=== PATIENT | female | born 1935 | race Caucasian/White ===

== ENCOUNTER 2019-12-15 20:30 | Inpatient (IN) | payer MEDICARE, OTHER ==
[~2019-12-15] VITALS: Ht 154.9 cm; Wt 77.1 kg
[~2019-12-15 20:30] MED LIST: DIGO125T3; HYDR-3857 PO; LOSA25TA41; METO-352 PO; TRAM-42 PO; WARF-48 PO; WARF5TAB2; WRF2.5T PO
--- NOTE | 2019-12-15 20:45 | NUR ---
Late entry: Pt arrives by POV with increasing sob today; pt was diagnosed with Covid a wk and half ago. Pt has been doing well but was seen by her PCP a couple of days ago for worsening of s/s and put on steroids and abx. Pt today had even worsening of s/s and came to ED for care. Pt is A&Ox4, is tachypneic, with low grade fever. Pt denies pain. IV and labs drawn. ECG obtained. Dr. Warner at bedside for exam.
[2019-12-15] MEDS ORDERED: CEFEPIME INJECTION 2,000 MG in WATER (STERILE) FOR INJECTION 20 ML IV ONE (21:00)
[2019-12-15 21:08] LABS: BASOPHILS % (AUTO) 0 % (0-10); EOSINOPHILS % (AUTO) 0 % (0-10); HEMATOCRIT 43 % (35-52); HEMOGLOBIN 14.5 g/dL (11.5-16.0); LYMPHOCYTES # (AUTO) 1.7 10^3/uL (1.0-4.0); LYMPHOCYTES % (AUTO) 15 % (12-44); MEAN CORPUSCULAR HEMOGLOBIN 34 pg (25-34); MEAN CORPUSCULAR HGB CONC 34 g/dL (32-36); MEAN CORPUSCULAR VOLUME 99 fL (80-99); MEAN PLATELET VOLUME 10.2 fL (9.0-12.2); MONOCYTES # (AUTO) 1.7 10^3/uL (0.0-1.0); MONOCYTES % (AUTO) 15 % (0-12); NEUTROPHILS # (AUTO) 8.1 10^3/uL (1.8-7.8); NEUTROPHILS % (AUTO) 70 % (42-75); PLATELET COUNT 246 10^3/uL (130-400); WHITE BLOOD COUNT 11.7 10^3/uL (4.3-11.0)
[2019-12-15] MEDS ORDERED: LACTATED RINGERS 1,000 ML IV ONE (21:10)
[2019-12-15 21:20] LABS: ALBUMIN 3.7 GM/DL (3.2-4.5); CHLORIDE 96 MMOL/L (98-107); INR 1.2 (0.8-1.4); POTASSIUM 3.6 MMOL/L (3.6-5.0); PROTHROMBIN TIME PATIENT 15.4 SEC (12.2-14.7); SODIUM 129 MMOL/L (135-145)
[2019-12-15 21:21] LABS: CALCIUM 8.5 MG/DL (8.5-10.1)
[2019-12-15 21:22] LABS: GLUCOSE 129 MG/DL (70-105)
[2019-12-15 21:23] LABS: TOTAL PROTEIN 7.2 GM/DL (6.4-8.2)
[2019-12-15 21:24] LABS: BILIRUBIN,TOTAL 1.1 MG/DL (0.1-1.0); CARBON DIOXIDE 20 MMOL/L (21-32)
[2019-12-15 21:26] LABS: ALKALINE PHOSPHATASE 64 U/L (40-136); CREATININE SERUM 0.89 MG/DL (0.60-1.30); GFR ESTIMATED > 60
--- NOTE | 2019-12-15 21:26 | ED Respiratory ---
General Chief Complaint: Respiratory Problems Stated Complaint: COVID + Nursing Triage Note: Patient is covid positive x 1.5 wks ago; states starting today she became increasingly shob. Source: patient, family History of Present Illness Date Seen by Provider: Dec 15, 2019 Time Seen by Provider: 21:35 Initial Comments PT ARRIVES VIA POV FROM HOME PT WITH 11 DAYS OF COVID-19 SYMPTOMS, TESTED + FOR COVID-19 9 DAYS AGO PT C/O MILD NON-PRODUCTIVE COUGH PT WITH PERSISTENT LOW GRADE TEMP--UP TO 100 TODAY TODAY IS VERY SHORT OF BREATH AND PROFOUNDLY WEAK, AND IS UNABLE TO STAND TODAY NO CHEST PAIN NO SWELLING IN LEGS/ FEET OR PAIN IN CALVES HAS BEEN DRINKING FLUIDS AND VOIDING NORMALLY NO LOSS OF TASTE OR SMELL NO GI SYMPTOMS HAS HAD BODY ACHES AND HEADACHE, AND ONGOING GENERALIZED WEAKNESS AND FATIGUE. PT HAS BEEN TO PCP, AND COMPLETED 5 DAYS OF ZITHROMAX, A SHORT ROUND OF DEXAMETHASONE, AND HAS COMPLETED 3 DAYS OF CEFDINIR. OUTPATIENT CXR WAS REPORTEDLY NORMAL ON WEDNESDAY PT HAD DONE RELATIVELY WELL UNTIL TODAY PT HAS CHRONIC ATRIAL FIBRILLATION ON , HAS CARDIOMYOPATHY THIS SUMMER HAD INTRACRANIAL BLEED--NO SURGERY, FOLLOWED BY ISCHEMIC STROKE, SMALL CEREBRAL ANEURYSM FOUND, BUT NO SURGERY DONE. MULTIPLE FAMILY MEMBERS ALL ILL WITH COVID-19, INCLUDING HER , WHO HAS BEEN ADMITTED HERE ALL WEEK AND WAS JUST DISMISSED THIS EVENING. PCP: DR. MAXWELL, [facility] Allergies and Home Medications Allergies Coded Allergies: lisinopril (Verified Adverse Reaction, Unknown, COUGH, 03/01/15) Home Medications Hydrocodone/Acetaminophen 1 Each Tablet, 1 EACH PO Q4H Prescribed by: STANLEY SCHMITZ on 03/01/152049 Metoprolol Succinate 50 Mg Tab.er.24h, 100 MG PO B, (Reported) Tramadol HCl 50 Mg Tablet, 50 MG PO Q4H Prescribed by: STANLEY SCHMITZ on 03/01/152049 Patient Home Medication List Home Medication List Reviewed: Yes Review of Systems Review of Systems Constitutional: see HPI, fever, malaise, weakness EENTM: no symptoms reported Respiratory: see HPI, cough, short of breath Cardiovascular: No chest pain, No edema, No syncope Gastrointestinal: No abdominal pain, No diarrhea; loss of appetite; No nausea, No vomiting Genitourinary: no symptoms reported; No decreased output Musculoskeletal: see HPI (BODY ACHES) Skin: no symptoms reported Psychiatric/Neurological: Headache; Denies Numbness, Denies Paresthesia, Denies Seizure, Denies Tingling; Weakness (GENERALIZED WEAKNESS AND FATIGUE) Hematologic/Lymphatic: See HPI Immunological/Allergic: no symptoms reported Past Ljdarbz-Iejlbr-Hfvoir Hx Past Med/Social Hx: Reviewed and Corrections made Patient Social History Alcohol Use: Denies Use Smoking Status: Never a Smoker Recent Foreign Travel: No Contact w/Someone Who Travel: No Recent Infectious Disease Expo: Yes Immunizations Up To Date Tetanus Booster (TDap): Unknown Past Medical History Surgeries: Yes ( X 1) Section Respiratory: No Cardiac: Yes (CHRONIC ATRIAL FIBRILLATION, ON ELIQUIS) Atrial Fibrillation, Cardiomyopathy, High Cholesterol, Hypertension Neurological: Yes (HEMORRHAGIC AND ISCHEMIC CVA'S SUMMER 2019; CEREBRAL ANEURYSM-NO SURG) 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 oz. 77.809860hp; 30.00 BMI Method: General Appearance: WD/WN, mild distress, other (MODERATELY DYSPNEIC, LETHARGIC, UNABLE TO STAND OR TRANSFER FROM VEHICLE TO WHEELCHAIR OR WHEELCHAIR TO BED--NEEDS FULL ASSIST. ) HEENT: PERRL/EOMI, other (MILDLY DRY) Neck: normal inspection Respiratory: respiratory distress (MILD), decreased breath sounds (IN RIGH T> LEFT BASE), accessory muscle use; No crackles, No rales, No rhonchi, No wheezing; other (MODERATELY DYSPNEIC) Cardiovascular: no JVD, no murmur, tachycardia, irregularly irregular Gastrointestinal: non tender, soft Extremities: normal inspection, pedal edema (TRACE BILATERALLY) Neurologic/Psychiatric: package crimper II-XII nml as tested, no motor/sensory deficits, alert, oriented x 3, other (LETHARGIC, GENERALIZED WEAKNESS) Skin: normal color, warm/dry; No rash Focused Exam Lactate Level 12/15/19 20:50: Lactic Acid Level 1.78 Lactic Acid Level Laboratory Tests Test 12/15/19 20:50 Lactic Acid Level 1.78 MMOL/L (0.50-2.00) Progress/Results/Core Measures Suspected Sepsis Recent Fever Within 48 Hours: Yes Infection Criteria Present: Documented Infection New/Unexplained Altered Menta: No Sepsis Screen: Possible Severe Sepsis Risk SIRS Temperature: Pulse: 118 Respiratory Rate: 32 Laboratory Tests 12/15/19 20:50: White Blood Count 11.7H Blood Pressure 154 /111 Mean: 125 12/15/19 20:50: Lactic Acid Level 1.78 Laboratory Tests 12/15/19 20:50: Creatinine 0.89, INR Comment 1.2, Platelet Count 246, Total Bilirubin 1.1H Results/Orders Lab Results Laboratory Tests Test 12/15/19 20:50 12/15/19 21:23 Range/Units White Blood Count 11.7 H 4.3-11.0 10^3/uL Red Blood Count 4.29 3.80-5.11 10^6/uL Hemoglobin 14.5 11.5-16.0 g/dL Hematocrit 43 35-52 % Mean Corpuscular Volume 99 80-99 fL Mean Corpuscular Hemoglobin 34 25-34 pg Mean Corpuscular Hemoglobin Concent 34 32-36 g/dL Red Cell Distribution Width 12.4 10.0-14.5 % Platelet Count 246 130-400 10^3/uL Mean Platelet Volume 10.2 9.0-12.2 fL Immature Granulocyte % (Auto) 1 % Neutrophils (%) (Auto) 70 42-75 % Lymphocytes (%) (Auto) 15 12-44 % Monocytes (%) (Auto) 15 H 0-12 % Eosinophils (%) (Auto) 0 0-10 % Basophils (%) (Auto) 0 0-10 % Neutrophils # (Auto) 8.1 H 1.8-7.8 10^3/uL Lymphocytes # (Auto) 1.7 1.0-4.0 10^3/uL Monocytes # (Auto) 1.7 H 0.0-1.0 10^3/uL Eosinophils # (Auto) 0.0 0.0-0.3 10^3/uL Basophils # (Auto) 0.0 0.0-0.1 10^3/uL Immature Granulocyte # (Auto) 0.1 0.0-0.1 10^3/uL Prothrombin Time 15.4 H 12.2-14.7 SEC INR Comment 1.2 0.8-1.4 Activated Partial Thromboplast Time 34 24-35 SEC Sodium Level 129 L 135-145 MMOL/L Potassium Level 3.6 3.6-5.0 MMOL/L Chloride Level 96 L 98-107 MMOL/L Carbon Dioxide Level 20 L 21-32 MMOL/L Anion Gap 13 5-14 MMOL/L Blood Urea Nitrogen 21 H 7-18 MG/DL Creatinine 0.89 0.60-1.30 MG/DL Estimat Glomerular Filtration Rate > 60 BUN/Creatinine Ratio 24 Glucose Level 129 H 70-105 MG/DL Lactic Acid Level 1.78 0.50-2.00 MMOL/L Calcium Level 8.5 8.5-10.1 MG/DL Corrected Calcium 8.7 8.5-10.1 MG/DL Magnesium Level 1.6 1.6-2.4 MG/DL Total Bilirubin 1.1 H 0.1-1.0 MG/DL Aspartate Amino Transf (AST/SGOT) 24 5-34 U/L Alanine Aminotransferase (ALT/SGPT) 24 0-55 U/L Alkaline Phosphatase 64 40-136 U/L Total Creatine Kinase 23 L 29-168 U/L Creatine Kinase MB 0.6 <6.6 NG/ML Myoglobin 30.1 10.0-92.0 NG/ML Troponin I < 0.028 <0.028 NG/ML B-Type Natriuretic Peptide 288.2 H <100.0 PG/ML Total Protein 7.2 6.4-8.2 GM/DL Albumin 3.7 3.2-4.5 GM/DL Procalcitonin 0.06 <0.10 NG/ML Urine Color YELLOW Urine Clarity SL CLOUDY Urine pH 5.0 5-9 Urine Specific Frontier >=1.030 1.016-1.022 Urine Protein 2+ H NEGATIVE Urine Glucose (UA) NEGATIVE NEGATIVE Urine Ketones NEGATIVE NEGATIVE Urine Nitrite NEGATIVE NEGATIVE Urine Bilirubin NEGATIVE NEGATIVE Urine Urobilinogen 0.2 < = 1.0 MG/DL Urine Leukocyte Esterase NEGATIVE NEGATIVE Urine RBC (Auto) TRACE-L NEGATIVE Urine RBC RARE /HPF Urine WBC RARE /HPF Urine Squamous Epithelial Cells NONE /HPF Urine Crystals PRESENT H /LPF Urine Amorphous Sediment FEW YOON URATES H /LPF Urine Bacteria TRACE /HPF Urine Casts NONE /LPF Urine Mucus NEGATIVE /LPF Urine Culture Indicated NO My Orders Orders - STANLEY SCHMITZ DO Cefepime Injection (Maxipime Injection) (12/15/19 21:00) Dexamethasone Injection (Decadron Inje (12/15/19 21:00) Ed Iv/Invasive Line Start (12/15/19 20:55) Ekg Tracing (12/15/19 20:55) Catheter(Urinary) Insert & Ass 03,15 (12/15/19 20:55) O2 (12/15/19 20:55) Monitor-Rhythm Ecg Trace Only (12/15/19 20:55) BNP (12/15/19 20:55) Cbc With Automated Diff (12/15/19 20:55) Comprehensive Metabolic Panel (12/15/19 20:55) Creatine Kinase (12/15/19 20:55) Creatine Kinase Mb (12/15/19 20:55) Lactic Acid Analyzer (12/15/19 20:55) Magnesium (12/15/19 20:55) Procalcitonin (Pct) (12/15/19 20:55) Protime With Inr (12/15/19 20:55) Partial Thromboplastin Time (12/15/19 20:55) Troponin I (12/15/19 20:55) Ua Culture If Indicated (12/15/19 20:55) Blood Culture (12/15/19 20:55) Myoglobin Serum (12/15/19 20:55) Chest 1 View, Ap/Pa Only (12/15/19 20:55) Lactated Ringers (Lr 1000 Ml Iv Solution (12/15/19 21:10) Ed Iv/Invasive Line Start (12/15/19 21:30) Ns Iv 1000 Ml (Sodium Chloride 0.9%) (12/15/19 21:30) Albuterol/Ipratropium Inhaler (Combivent (12/16/19 09:00) Fluticasone/Salmeterol 115/21 (Advair Hf (12/16/19 08:00) Rt Request For Service (12/15/19 22:03) Medications Given in ED Current Medications Medications Dose Ordered Sig/Figueroa Route Start Time Stop Time Status Last Admin Dose Admin Cefepime HCl 2000 mg/Sterile Water 20 ml @ 240 mls/hr ONCE ONCE IV 12/15/19 21:00 12/15/19 21:04 DC 12/15/19 21:07 240 MLS/HR Vital Signs/I&O 12/15/19 12/15/19 12/15/19 20:30 21:20 21:37 Temp 37.6 Pulse 118 120 Resp 32 32 B/P (MAP) 154/111 (125) 158/111 Pulse Ox 93 96 98 O2 Delivery Room Air Nasal Cannula Nasal Cannula O2 Flow Rate 2.00 12/16/19 00:00 Intake Total 1000 ml Balance 1000 ml Capillary Refill : Less Than 3 Seconds Blood Pressure Mean: 125 Progress Note : Progress Note O2 SATS 93-94% ON ROOM AIR--UP TO 97% ON 2L/NC STILL WITH MODERATE DYSPNEA GIVEN INHALER TREATMENTS WITH COMBIVENT AND ADVAIR WITH MILD IMPROVEMENT IN LABORED BREATHING. NO DETERIORATION IN PT'S CONDITION DURING ER STAY ECG Initial ECG Impression Date: Dec 15, 2019 Initial ECG Impression Time: 20:41 Initial ECG Rate: 107 Initial ECG Impression: Atrial Fibrillation Diagnostic Imaging Comments CXR--PER RADIOLOGIST REPORT AT 2137 FINDINGS: Cardiac enlargement and central vascular congestion. There is some asymmetric infiltrate in the right base which could represent pneumonia. There is no pneumothorax or large effusion. Osseous structures are normal. IMPRESSION: 1. Cardiac enlargement with central vascular congestion. 2. Infiltrate at the right lung base suspicious for pneumonia. Reviewed: Reviewed by Me Departure Communication (Admissions) 2099--SPOKE WITH DR. SALMERON, WILL CALL HER BACK WITH TEST RESULTS. 2204--SPOKE WITH DR. SALMERON, ACCEPTS PT FOR ADMIT. ORDERS NOTED. Impression Primary Impression: Pneumonia due to COVID-19 virus Additional Impressions: Dehydration Hyponatremia Chronic atrial fibrillation Generalized weakness Disposition: ADMITTED INPATIENT Condition: Stable Admissions Decision to Admit Reason: Admit from ER (General) Decision to Admit/Date: Dec 15, 2019 Time/Decision to Admit Time: 22:10 Departure-Patient Inst. Referrals: NO,LOCAL PHYSICIAN (PCP/Family) Primary Care Physician STANLEY SCHMITZ DO Dec 15, 2019 21:25
[2019-12-15 21:27] LABS: BUN/CREATININE RATIO 24
[2019-12-15 21:29] LABS: ALANINE AMINOTRANSFERASE 24 U/L (0-55)
[2019-12-15 21:30] LABS: MAGNESIUM 1.6 MG/DL (1.6-2.4)
[2019-12-15] MEDS ORDERED: NS IV 1000 ML 1,000 ML IV SCH (21:30)
[2019-12-15 21:31] LABS: CREATINE KINASE 23 U/L (29-168)
[2019-12-15 21:33] LABS: BILIRUBIN,URINE NEGATIVE (NEGATIVE); COLOR,URINE YELLOW; GLUCOSE, URINE (UA) NEGATIVE (NEGATIVE); KETONES,URINE NEGATIVE (NEGATIVE); LEUKOCYTE ESTERASE ,URINE NEGATIVE (NEGATIVE); NITRITE,URINE NEGATIVE (NEGATIVE); PROTEIN,URINE 2+ (NEGATIVE)
--- NOTE | 2019-12-15 21:37 | Diagnostic Imaging Report ---
INDICATION: Pneumonia, Covid positive. COMPARISON: None. EXAMINATION: Single view of the chest. FINDINGS: Cardiac enlargement and central vascular congestion. There is some asymmetric infiltrate in the right base which could represent pneumonia. There is no pneumothorax or large effusion. Osseous structures are normal. IMPRESSION: 1. Cardiac enlargement with central vascular congestion. 2. Infiltrate at the right lung base suspicious for pneumonia. Dictated by: Dictated on workstation # [id number]
[2019-12-15 21:38] LABS: CLARITY,URINE SL CLOUDY
[2019-12-15 21:38] LABS: CREATINE KINASE MB 0.6 NG/ML (<6.6)
[2019-12-15 21:44] LABS: AMORPHOUS SEDIMENT,UR FEW AMOR URATES /LPF; BACTERIA,URINE TRACE /HPF; RBC,URINE RARE /HPF; WBC,URINE RARE /HPF
[2019-12-15] MEDS ORDERED: ADVAIR HFA 115/21 MCG INHALER 8 GM IH ONE (22:09)
[2019-12-15] MEDS ORDERED: ALBUTEROL/IPRATROP (COMBIVENT RESPIMAT) 4 GM INHALER ONE (22:10)
--- NOTE | 2019-12-15 22:14 | NUR ---
Pt remains alert and answering questions appropriately. Pt remais tachypneic.
[2019-12-15 23:10] VITALS: BP 159/99
--- NOTE | 2019-12-15 23:10 | NUR ---
NINOSKA MCINTYRE admitted to room 423-1, with an admitting diagnosis of Covid 19, Pneumonia, Dehydration, Profound weakness, on 12/15/19 from ER via stretcher, accompanied by RN's x 2.NINOSKA MCINTYRE introduced to surroundings, call light, bed controls, phone, TV, temperature control, lights, meal times, smoking policy, visitor policy, side rail policy, bathrooms and showers. Patient Rights given to patient in the handbook. NINOSKA MCINTYRE verbalizes understanding that [facility] is not responsible for the loss or damage to any personal effects or valuables that are kept in the patients possession during their hospitalization.
[2019-12-15] MEDS ORDERED: ONDANSETRON 4 MG/2 ML (SDV) Z0FRAN IVP PRN (23:45)
[2019-12-16] VITALS (11 sets, daily range): BP systolic 123–154; BP diastolic 67–111
[2019-12-16] MEDS: NS IV 1000 ML 1,000 ML IV SCH ×2 (00:29→08:29)
--- NOTE | 2019-12-16 01:12 | NUR ---
ALBUTEROL INHALER 4 PUFFS Q6 AND Q2 PRN. INITIATE 02 2-4 L TO KEEP SATS GREATER THAN 94%. IS AND AEROBIKKA TID. RT TO REASSESS OR REEVALUATE IN 72 HOURS OR NEEDE Addendum: 12/16/19 at 0112 by SARITHA CARBAJAL RT Amended: Links added.
[2019-12-16] MEDS ORDERED: RT-ALBUTEROL INHALER HFA (VENTOLIN HFA) 18 GM IH PRN (01:15)
[2019-12-16] MEDS ORDERED: APIX5TAB PO (01:56)
[2019-12-16] MEDS ORDERED: ROSU5TAB13 PO (01:56)
[2019-12-16] MEDS ORDERED: LOSA50TA63 PO (01:56)
[2019-12-16] MEDS ORDERED: METO100T6 PO (01:56)
[2019-12-16] MEDS ORDERED: CEFD300C3 PO (02:08)
[2019-12-16 06:05] LABS: BASOPHILS % (AUTO) 0 % (0-10); EOSINOPHILS % (AUTO) 0 % (0-10); HEMATOCRIT 42 % (35-52); HEMOGLOBIN 14.5 g/dL (11.5-16.0); LYMPHOCYTES # (AUTO) 1.1 10^3/uL (1.0-4.0); LYMPHOCYTES % (AUTO) 16 % (12-44); MEAN CORPUSCULAR HEMOGLOBIN 34 pg (25-34); MEAN CORPUSCULAR HGB CONC 34 g/dL (32-36); MEAN CORPUSCULAR VOLUME 99 fL (80-99); MEAN PLATELET VOLUME 10.3 fL (9.0-12.2); MONOCYTES # (AUTO) 0.5 10^3/uL (0.0-1.0); MONOCYTES % (AUTO) 8 % (0-12); NEUTROPHILS # (AUTO) 5.2 10^3/uL (1.8-7.8); NEUTROPHILS % (AUTO) 76 % (42-75); PLATELET COUNT 229 10^3/uL (130-400); WHITE BLOOD COUNT 6.8 10^3/uL (4.3-11.0)
[2019-12-16] MEDS: CEFEPIME 1,000 MG/SWFI 10 ML IV PUSH IV SCH ×6 (06:07→21:40)
[2019-12-16 06:14] LABS: ALBUMIN 3.4 GM/DL (3.2-4.5); CHLORIDE 101 MMOL/L (98-107); POTASSIUM 3.9 MMOL/L (3.6-5.0); SODIUM 136 MMOL/L (135-145)
[2019-12-16 06:16] LABS: CALCIUM 8.9 MG/DL (8.5-10.1)
[2019-12-16 06:17] LABS: GLUCOSE 148 MG/DL (70-105); TOTAL PROTEIN 6.6 GM/DL (6.4-8.2)
[2019-12-16 06:18] LABS: CARBON DIOXIDE 22 MMOL/L (21-32)
[2019-12-16 06:19] LABS: BILIRUBIN,TOTAL 1.5 MG/DL (0.1-1.0)
[2019-12-16 06:20] LABS: ALKALINE PHOSPHATASE 59 U/L (40-136); CREATININE SERUM 0.78 MG/DL (0.60-1.30); GFR ESTIMATED > 60
[2019-12-16 06:21] LABS: BUN/CREATININE RATIO 22
[2019-12-16 06:23] LABS: ALANINE AMINOTRANSFERASE 29 U/L (0-55)
[2019-12-16] MEDS ORDERED: ADVAIR HFA 115/21 MCG INHALER 8 GM IH ONE (08:00)
[2019-12-16] MEDS ORDERED: ALBUTEROL/IPRATROP (COMBIVENT RESPIMAT) 4 GM INHALER IH ONE (09:00)
[2019-12-16] MEDS: RT-ALBUTEROL INHALER HFA (VENTOLIN HFA) 18 GM IH SCH ×4 (10:25→19:34)
[2019-12-16] MEDS: ACETAMINOPHEN 500 MG TAB (TYLENOL) PO PRN (11:47)
--- NOTE | 2019-12-16 11:51 | History & Physical-Hospitalist ---
History of Present Illness HPI/Chief Complaint Pt is a n 84yoCF with a PMH of a-fib, ICH, HTN, HLD who presented to the ER due to worsening COVID symptoms. She developed COVID symptoms 12 days ago and was tested positive 10 days ago after attending a wedding where there have now been multiple COVID cases. She was doing ok at home but became more short of breath yesterday. She reports a temperature around 100. She told the ER due was more weak and that it was hard to walk but to me states the difficulty walking was from her need for a hip replacement. She was treated with Azithromycin, decadron, and cefdinir as an outpatient and did well with that until yesterday. Source: patient Date Seen 12/16/19 Time Seen by a Provider: 11:45 Attending Physician Mariola Vallecillo MD PCP No,Local Physician Referring Physician Date of Admission Dec 15, 2019 at 22:10 Home Medications & Allergies Home Medications Reviewed patient Home Medication Reconciliation performed by pharmacy medication reconciliations chemical waste management technician and/or nursing. Patients Allergies have been reviewed. Allergies Allergies Coded Allergies lisinopril (Verified Adverse Reaction, Unknown, COUGH, 03/01/15) Past Svujrhd-Xpzunp-Phfvqc Hx Past Med/Social Hx: Reviewed and Corrections made Patient Social History Marrital Status: Employed/Student: retired Alcohol Use: Denies Use Recreational Drug Use: No Smoking Status: Never a Smoker Recent Foreign Travel: No Contact w/other who traveled: No Recent Infectious Disease Expo: Yes Immunizations Up To Date Tetanus Booster (TDap): Unknown Past Medical History Surgeries: Section Cardiac: Atrial Fibrillation, Cardiomyopathy, High Cholesterol, Hypertension Neurological: Stroke Menopausal Genitourinary: Bladder Infection History of Blood Disorders: No Family History Reviewed Nursing Family Hx FH: heart disease 19 FATHER Review of Systems Constitutional: fever (low grade), malaise, weakness EENTM: no symptoms reported Respiratory: see HPI, dyspnea on exertion, short of breath Cardiovascular: No chest pain, No palpitations Gastrointestinal: No abdominal pain, No nausea, No vomiting Genitourinary: No dysuria, No frequency Musculoskeletal: muscle cramps, muscle weakness Psychiatric/Neurological: Denies Headache, Denies Numbness; Weakness Physical Exam Physical Exam Vital Signs Vital Signs - First Documented 10/9/20 10/9/20 10/10/20 20:30 21:20 00:53 Temp 37.6 Pulse 118 Resp 32 B/P (MAP) 154/111 (125) Pulse Ox 93 O2 Delivery Room Air O2 Flow Rate 2.00 FiO2 21 Capillary Refill : Less Than 3 Seconds Height, Weight, BMI Height: 5'1" Weight: 170lbs. oz. 77.238384jo; 36.30 BMI Method: General Appearance: No Apparent Distress, WD/WN HEENT: PERRL/EOMI, Moist Mucous Membranes Neck: Normal Inspection, Supple Respiratory: Decreased Breath Sounds; No Rhonci, No Wheezing; Other (on 3lpm NC) Cardiovascular: No JVD, No Murmur, Irregularly Irregular Gastrointestinal: Normal Bowel Sounds, Non Tender, Soft Extremity: Normal Capillary Refill, No Calf Tenderness, No Pedal Edema Neurologic/Psychiatric: Alert, Oriented x3, Normal Mood/Affect Skin: Normal Color, Warm/Dry Results Results/Procedures Labs Laboratory Tests 12/15/19 20:50 12/16/19 05:10 12/16/19 05:30 12/17/19 05:45 Patient resulted labs reviewed. Imaging: Reviewed Imaging Report Imaging [facility] [place], [place] NAME: NINOSKA MCINTYRE [facility] REC#: [id number] PT STATUS: REG ER : 1935 PHYSICIAN: STANLEY SCHMITZ DO ADMIT DATE: 12/15/19/ER Signed Date of Exam:12/15/19 CHEST 1 VIEW, AP/PA ONLY INDICATION: Pneumonia, Covid positive. COMPARISON: None. EXAMINATION: Single view of the chest. FINDINGS: Cardiac enlargement and central vascular congestion. There is some asymmetric infiltrate in the right base which could represent pneumonia. There is no pneumothorax or large effusion. Osseous structures are normal. IMPRESSION: 1. Cardiac enlargement with central vascular congestion. 2. Infiltrate at the right lung base suspicious for pneumonia. Dictated by: Dictated on workstation # [id number] Dict: 12/15/[id number] Trans: 12/15/192136 [facility] [id number] Interpreted by: NACHO PEDERSEN Electronically signed by: NACHO PEDERSEN 12/15/192136 Assessment/Plan Admission Diagnosis COVID19 Admission Status: Inpatient Order (span 2 midnights) Reason for Inpatient Admission: see below Assessment and Plan COVID19 PNA Generalized weakness Decadron PT Discussed convalescent plasma and EUA status, patient agrees, will order No true hypoxia documented and outside of window for Remdesivir per [place] guidelines Cefepime for pna IS MAT A-fib Continue metoprolol and eliquis Rate controlled HTN BP well controlled, hold Losartan HLD Continue home meds DVT ppx: Eliquis Diagnosis/Problems Diagnosis/Problems (1) Pneumonia due to COVID-19 virus Status: Acute (2) Chronic atrial fibrillation Status: Acute (3) Hyponatremia Status: Acute (4) Generalized weakness Status: Acute (5) Dehydration Status: Acute Clinical Quality Measures DVT/VTE Risk/Contraindication: Risk Factor Score Per Nursin RFS Level Per Nursing on Admit: 4+=Very High MARIOLA VALLECILLO MD Dec 16, 2019 11:51
[2019-12-16] MEDS ORDERED: NS IV 500 ML 500 ML IV SCH (12:04)
[2019-12-16] MEDS ORDERED: FUROSEMIDE 40 MG/4 ML INJ (LASIX) IVP NR (12:15)
[2019-12-16] MEDS: APIXABAN 5 MG (ELIQUIS) TABLET PO SCH ×2 (12:19→20:19)
[2019-12-16] MEDS ORDERED: FLU QUAD HIGH DOSE 240 MCG/0.7 ML 2020-21 (FLUZONE) IM ONE (13:45)
--- NOTE | 2019-12-16 14:20 | Physical Therapy Evaluation ---
PT Evaluation-General Medical Diagnosis Admission Date Dec 15, 2019 at 22:10 Medical Diagnosis: weakness, covid 19 Onset Date: Dec 15, 2019 Therapy Diagnosis Therapy Diagnosis: impaired mobility, strength, endurance Height/Weight Height (Feet): 5 Height (Inches): 1 Weight (Pounds): 170 Precautions Precautions/Isolations: Contact Isolation, Droplet Isolation, Fall Prevention Referral Physician: Ruth Ann Reason for Referral: Evaluation/Treatment Medical History Additional Medical History Past Medical History Surgeries: Section Cardiac: Atrial Fibrillation, Cardiomyopathy, High Cholesterol, Hypertension Neurological: Stroke Menopausal Genitourinary: Bladder Infection Reviewed History: Yes Social History Home: Single Level Current Living Status: Spouse Entry Into Home: Stairs With Railing PT Steps Into Home: 3 Prior Prior Level of Function SCALE: Activities may be completed with or without assistive devices. 6-Zsoyypouzb-wjexdtl completes the activity by him/herself with no assistance from a helper. 5-Set-up or Clean-up Assistance-helper sets up or cleans up; patient completes activity. [place] assists only prior to or following the activity. 4-Supervision or Touching Assistance-helper provides verbal cues and/or touching/steadying and/or contact guard assistance as patient completes activity. Assistance may be provided throughout the activity or intermittently. 3-Partial/Moderate Assistance-helper does LESS THAN HALF the effort. [place] lifts, holds or supports trunk or limbs, but provides less than half the effort. 2-Substantial/Maximal Assistance-helper does MORE THAN HALF the effort. [place] lifts or holds trunk or limbs and provides more than half the effort. 7-Hpjsgqxjp-yizszs does ALL the effort. Patient does none of the effort to complete the activity. Or, the assistance of 2 or more helpers is required for the patient to complete the activity. If activity was not attempted, code reason: 7-Patient Refused. 9-Not Applicable-not attempted and the patient did not perform the activity before the current illness, exacerbation or injury. 10-Not Attempted due to Environmental Limitations-(lack of equipment, weather restraints, etc.). 88-Not Attempted due to Medical Conditions or Safety Concerns. Bed Mobility: 6 Transfers (B,C,W/C): 6 Gait: 6 Stairs: 6 PT Evaluation-Current Subjective Patient in bed pre tx, agrees to PT, has no complaints of pain Pt/Family Goals to be independent at home Objective Patient Orientation: Person, Place, Situation Attachments: Oxygen, Villalba Catheter, IV ROM/Strength ROM Lower Extremities WNL Strength Lower Extremities 4/5 gross BLE Sensory Hearing: Functional Sensation Right Lower Extremit: Intact Sensation Left Lower Extremity: Intact Transfers Roll Left to Right (QC): 6 Sit to Lying (QC): 6 Lying to Sitting/Side of Bed(Q: 6 Sit to Stand (QC): 4 Gait Does the Patient Walk?: Yes Mode of Locomotion: Walk Anticipated Mode of Locomotion: Walk Walk 10 feet (QC): 4 Distance: 20' Gait Assistive Device: FWW Comments/Gait Description Patient was limited in distance by her nasal canula tubing, she ambulated a few feet forward and back before sitting, she states she was not SOB after ambulating but just tired. She ambulated without LOB or difficulty. Balance Sitting Static: Normal Sitting Dynamic: Normal Standing Static: Good Standing Dynamic: Good Treatment BLE supine exercises x20 (AP, QS, HS) Assessment/Needs Patient has impaired mobility, strength, endurance. She was able to ambulate about 20 feet before needing to sit. Patient in bed post tx with nurse call, phone, tray, bed alarm on, all needs met. Rehab Potential: Fair PT Manager Loss Prevention Goals Usp Goals PT Manager Loss Prevention Goals Time Frame: Dec 23, 2019 Roll Left & Right (QC): 6 Sit to Lying (QC): 6 Lying-Sitting on Side/Bed(QC): 6 Sit to Stand (QC): 6 Chair/Xse-nr-Ymeiw Xfer(QC): 6 Toilet Transfer (QC): 6 Walk 10 feet (QC): 6 Walk 50ft with 2 Turns (QC): 6 Walk 150 ft (QC): 6 PT Plan Problem List Problem List: Activity Tolerance, Functional Strength, Safety, Balance, Gait, Transfer Treatment/Plan Treatment Plan: Continue Plan of Care Treatment Plan: Education, Functional Activity [place], Functional Strength, Gait, Safety, Therapeutic Exercise, Transfers Treatment Duration: Dec 23, 2019 Frequency: 6 times per week Estimated Hrs Per Day: .25 hour per day Patient and/or Family Agrees t: Yes Safety Risks/Education Patient Education: Gait Training, Transfer Techniques, Correct Positioning, Safety Issues Teaching Recipient: Patient Teaching Methods: Demonstration, Discussion Response to Teaching: Reinforcement Needed Discharge Recommendations Plan Patient will perform bed mobility and transfer training, balance and endurance training, functional strengthening, stair training, gait training, and education, to improve functional mobility and independence at home. Therapy Discharge Recommendati: Home & Family Time/GCodes Time In: 1350 Time Out: 1402 Total Billed Treatment Time: 12 Total Billed Treatment 1 visit DANYELL Valentin' [place] [facility]IP[place] PT Dec 16, 2019 14:20
[2019-12-16] MEDS: meTOprolol SUCCINATE 100 MG (TOPROL XL) TAB PO SCH (20:19)
[2019-12-17] VITALS (26 sets, daily range): BP systolic 106–207; BP diastolic 70–145
[2019-12-17] MEDS: NS IV 1000 ML 1,000 ML IV SCH ×2 (01:39→20:15)
[2019-12-17] MEDS: RT-ALBUTEROL INHALER HFA (VENTOLIN HFA) 18 GM IH SCH ×5 (02:15→23:10)
--- NOTE | 2019-12-17 03:36 | NUR ---
ASSISTED PT UP TO BSC, PT HAD BM, THEN RETURNED TO BED WITH ASSISTANCE. HEART RATE NOTED TO BE IN THE 170S AND CONTINUED AT THIS RATE AFTER 15 MINUTES OF BEING BACK TO BED. O2 SAT AT THIS TIME AT 89% ON [address] SALMERON AT 0333 TO UPDATE ON PT STATUS. NEW ORDERS TO TRANSFER PT TO THE UNIT AND START CARDIZEM DRIP.
[2019-12-17] MEDS ORDERED: dilTIAZem DRIP PRE-MIX 125 ML IV ONE (03:58)
--- NOTE | 2019-12-17 04:05 | NUR ---
PT TRANSFERRED TO ICU RM 9 BY BED, ORAL COMMUNICATION INSTRUCTOR, AND RN'S X2.
[2019-12-17] MEDS: ACETAMINOPHEN 500 MG TAB (TYLENOL) PO PRN ×2 (04:10→22:50)
[2019-12-17] MEDS: dilTIAZem DRIP PRE-MIX 125 ML IV SCH ×2 (04:11→22:10)
[2019-12-17 04:41] LABS: ABG BASE EXCESS -1.8 MMOL/L (-2.5-2.5); ABG OXYGEN SATURATION 93 % (94-100); ABG PCO2 36 MMHG (35-45); ABG PH 7.41 (7.37-7.43); ABG PO2 72 MMHG (79-93); ABG TCO2 22.6 MMOL/L (21.0-31.0)
[2019-12-17 04:46] LABS: ALLENS TEST POSITIVE; INSPIRED O2 15; PATIENT TEMP 39.5; VENTILATOR NO
[2019-12-17 06:06] LABS: BASOPHILS % (AUTO) 0 % (0-10); EOSINOPHILS % (AUTO) 0 % (0-10); HEMATOCRIT 43 % (35-52); HEMOGLOBIN 14.5 g/dL (11.5-16.0); LYMPHOCYTES # (AUTO) 0.6 10^3/uL (1.0-4.0); LYMPHOCYTES % (AUTO) 4 % (12-44); MEAN CORPUSCULAR HEMOGLOBIN 34 pg (25-34); MEAN CORPUSCULAR HGB CONC 34 g/dL (32-36); MEAN CORPUSCULAR VOLUME 100 fL (80-99); MEAN PLATELET VOLUME 10.3 fL (9.0-12.2); MONOCYTES # (AUTO) 1.7 10^3/uL (0.0-1.0); MONOCYTES % (AUTO) 11 % (0-12); NEUTROPHILS # (AUTO) 13.5 10^3/uL (1.8-7.8); NEUTROPHILS % (AUTO) 84 % (42-75); PLATELET COUNT 218 10^3/uL (130-400)
[2019-12-17 06:12] LABS: CHLORIDE 103 MMOL/L (98-107); POTASSIUM 3.4 MMOL/L (3.6-5.0); SODIUM 135 MMOL/L (135-145)
[2019-12-17 06:13] LABS: CALCIUM 8.8 MG/DL (8.5-10.1)
[2019-12-17 06:14] LABS: GLUCOSE 129 MG/DL (70-105)
[2019-12-17 06:15] LABS: CARBON DIOXIDE 20 MMOL/L (21-32)
[2019-12-17 06:18] LABS: CREATININE SERUM 0.82 MG/DL (0.60-1.30); GFR ESTIMATED > 60
[2019-12-17 06:19] LABS: BUN/CREATININE RATIO 27
[2019-12-17 06:20] LABS: MAGNESIUM 1.7 MG/DL (1.6-2.4)
[2019-12-17] MEDS ORDERED: KCL 20 MEQ TAB (K-DUR) PO ONE ×2 (06:25→06:30)
[2019-12-17] MEDS ORDERED: CEFEPIME 1 GM/10 ML (MAXIPIME) VIAL ONE ×3 (06:25→21:49)
[2019-12-17] MEDS: CEFEPIME 1,000 MG/SWFI 10 ML IV PUSH IV SCH ×6 (06:46→22:07)
[2019-12-17 06:54] LABS: BAND NEUTROPHILS 3 %; LYMPHOCYTES % (MANUAL) 6 %; MONOCYTES % (MANUAL) 11 %; NEUTROPHILS % (MANUAL) 80 %
[2019-12-17 06:55] LABS: RBC MORPH NORMAL
--- NOTE | 2019-12-17 07:51 | Diagnostic Imaging Report ---
EXAMINATION: Chest 1 view HISTORY: Shortness of breath, COVID positive. COMPARISON: Chest radiograph 12/15/2019 FINDINGS: Heart size and pulmonary vasculature are stable. Stable patchy airspace opacities within the mid lungs and lung bases. No pleural effusion or pneumothorax. The osseous structures are intact. IMPRESSION: 1. Stable patchy airspace opacities within the right and left mid lung and bases compared to 12/15/2019. Findings compatible with pneumonia. Dictated by: Dictated on workstation # [id number]
[2019-12-17] MEDS: meTOprolol SUCCINATE 100 MG (TOPROL XL) TAB PO SCH ×2 (08:35→22:08)
[2019-12-17] MEDS: ROSUVASTATIN 5 MG (CRESTOR) TABLET PO SCH (08:35)
[2019-12-17] MEDS: APIXABAN 5 MG (ELIQUIS) TABLET PO SCH ×2 (08:35→22:08)
--- NOTE | 2019-12-17 09:54 | Progress Note - Hospitalist ---
Subjective HPI/CC On Admission Date Seen by Provider: Dec 17, 2019 Time Seen by Provider: 09:36 Pt is a n 84yoCF with a PMH of a-fib, ICH, HTN, HLD who presented to the ER due to worsening COVID symptoms. She developed COVID symptoms 12 days ago and was tested positive 10 days ago after attending a wedding where there have now been multiple COVID cases. She was doing ok at home but became more short of breath yesterday. She reports a temperature around 100. She told the ER due was more weak and that it was hard to walk but to me states the difficulty walking was from her need for a hip replacement. She was treated with Azithromycin, decadron, and cefdinir as an outpatient and did well with that until yesterday. Subjective/Events-last exam Pt reports doing well. No complaints. Went in to a-fib with RVR overnight. transferred to ICU for cardizem gtt. Rate better now but on more oxygen. She denies any complaints while I was in the room and has been asking the nurse if she'll be able to go home. Focused Exam Lactate Level 12/15/19 20:50: Lactic Acid Level 1.78 Objective Exam Vital Signs Vital Signs Date Time Temp Pulse Resp B/P (MAP) Pulse Ox O2 Delivery O2 Flow Rate FiO2 12/17/19 08:00 95 High Flow N/C 10.00 12/17/19 08:00 93 42 124/81 (95) 12/17/19 06:52 36.8 12/16/19 00:53 21 Capillary Refill : Less Than 3 Seconds General Appearance: No Apparent Distress, Chronically ill, Obese Respiratory: Lungs Clear, Other (on 10lpm HFNC) Cardiovascular: No Murmur, Irregularly Irregular Gastrointestinal: Normal Bowel Sounds, Non Tender, Soft Extremity: No Calf Tenderness, No Pedal Edema Neurologic/Psychiatric: Alert, Oriented x3 Results/Procedures Lab Laboratory Tests 12/17/19 05:45 Patient resulted labs reviewed. Imaging: Reviewed Imaging Report Assessment/Plan Assessment and Plan Assess & Plan/Chief Complaint COVID19 PNA Generalized weakness Decadron PT/OT s/p 1 unit plasma Outside of window for remdesivir I personally weaned oxygen down to 6lpm while I was at bedside Cefepime for pna IS MAT A-fib with RVR Cardizem gtt Cardiology consulted, appreciate recs Rate controlled improved from overnight HTN BP well controlled, hold Losartan HLD Continue home meds DVT ppx: Eliquis Clinical Quality Measures DVT/VTE Risk/Contraindication: Risk Factor Score Per Nursin RFS Level Per Nursing on Admit: 4+=Very High MARIOLA SALMERON MD Dec 17, 2019 09:54
--- NOTE | 2019-12-17 10:53 | Consultation-Cardiology ---
HPI-Cardiology Cardiology Consultation Date of Consultation 12/17/19 Date of Admission Time Seen by Provider: 10:49 Indication: Atrial fibrillation HPI 84-year-old lady with history of paroxysmal atrial fibrillation, diagnosed with COVID 19 about 2 weeks ago, started to have worsening shortness of breath. Was admitted through the emergency room. She was noted to be in atrial fibrillation with rapid ventricular response. Admit having shortness of breath, cough. No chest pain. No palpitation. No syncope or near syncopal episodes. No claudications. Home Medications & Allergies Allergies: Coded Allergies: lisinopril (Verified Adverse Reaction, Unknown, COUGH, 03/01/15) Home Medication List Reviewed: Yes XTO-Oprtop-Itqlat Hx Patient Social History Marital Status: Employed/Student: retired Alcohol Use: Denies Use Recreational Drug Use: No Smoking Status: Never a Smoker Recent Foreign Travel: No Recent Infectious Disease Expo: Yes Immunizations Up To Date Tetanus Booster (TDap): Unknown Past Medical History Discussed below Family Medical History Family History: FH: heart disease 19 FATHER Review of Systems-General Review of Systems Constitutional: see HPI, fever (low grade), malaise, weakness EENTM: see HPI, no symptoms reported Respiratory: see HPI, cough, dyspnea on exertion; No hemoptysis, No orthopnea, No phlegm; short of breath; No stridor, No wheezing, No other Cardiovascular: see HPI; No chest pain, No edema, No Hx of Intervention; palpitations; No syncope, No vascular heart diseas, No other Gastrointestinal: no symptoms reported, see HPI; No abdominal pain, No nausea, No vomiting Genitourinary: no symptoms reported, see HPI; No dysuria, No frequency Musculoskeletal: see HPI, muscle cramps, muscle weakness Skin: no symptoms reported, see HPI Psychiatric/Neurological: See HPI; Denies Headache, Denies Numbness; Weakness Reviewed Test Results Reviewed Test Results Lab Laboratory Tests Test 12/17/19 04:31 12/17/19 05:45 Range/Units Blood Gas Puncture Site RIGHT RADIAL Blood Gas Patient Temperature 39.5 Arterial Blood pH 7.41 7.37-7.43 Arterial Blood Partial Pressure CO2 36 35-45 MMHG Arterial Blood Partial Pressure O2 72 L 79-93 MMHG Arterial Blood HCO3 22 L 23-27 MMOL/L Arterial Blood Total CO2 22.6 21.0-31.0 MMOL/L Arterial Blood Oxygen Saturation 93 L 94-100 % Arterial Blood Base Excess -1.8 -2.5-2.5 MMOL/L Josemanuel Test POSITIVE Blood Gas Ventilator Setting NO Blood Gas Inspired Oxygen 15 White Blood Count 16.0 H 4.3-11.0 10^3/uL Red Blood Count 4.30 3.80-5.11 10^6/uL Hemoglobin 14.5 11.5-16.0 g/dL Hematocrit 43 35-52 % Mean Corpuscular Volume 100 H 80-99 fL Mean Corpuscular Hemoglobin 34 25-34 pg Mean Corpuscular Hemoglobin Concent 34 32-36 g/dL Red Cell Distribution Width 12.4 10.0-14.5 % Platelet Count 218 130-400 10^3/uL Mean Platelet Volume 10.3 9.0-12.2 fL Immature Granulocyte % (Auto) 1 % Neutrophils (%) (Auto) 84 H 42-75 % Lymphocytes (%) (Auto) 4 L 12-44 % Monocytes (%) (Auto) 11 0-12 % Eosinophils (%) (Auto) 0 0-10 % Basophils (%) (Auto) 0 0-10 % Neutrophils # (Auto) 13.5 H 1.8-7.8 10^3/uL Lymphocytes # (Auto) 0.6 L 1.0-4.0 10^3/uL Monocytes # (Auto) 1.7 H 0.0-1.0 10^3/uL Eosinophils # (Auto) 0.0 0.0-0.3 10^3/uL Basophils # (Auto) 0.0 0.0-0.1 10^3/uL Immature Granulocyte # (Auto) 0.1 0.0-0.1 10^3/uL Neutrophils % (Manual) 80 % Lymphocytes % (Manual) 6 % Monocytes % (Manual) 11 % Band Neutrophils 3 % Blood Morphology Comment NORMAL Sodium Level 135 135-145 MMOL/L Potassium Level 3.4 L 3.6-5.0 MMOL/L Chloride Level 103 98-107 MMOL/L Carbon Dioxide Level 20 L 21-32 MMOL/L Anion Gap 12 5-14 MMOL/L Blood Urea Nitrogen 22 H 7-18 MG/DL Creatinine 0.82 0.60-1.30 MG/DL Estimat Glomerular Filtration Rate > 60 BUN/Creatinine Ratio 27 Glucose Level 129 H 70-105 MG/DL Calcium Level 8.8 8.5-10.1 MG/DL Phosphorus Level 2.0 L 2.3-4.7 MG/DL Magnesium Level 1.7 1.6-2.4 MG/DL B-Type Natriuretic Peptide 206.1 H <100.0 PG/ML Physical Exam Physical Exam Vital Signs Vital Signs - First Documented 12/15/19 12/15/19 12/16/19 20:30 21:20 00:53 Temp 37.6 Pulse 118 Resp 32 B/P (MAP) 154/111 (125) Pulse Ox 93 O2 Delivery Room Air O2 Flow Rate 2.00 FiO2 21 Capillary Refill : Less Than 3 Seconds Height, Weight, BMI Height: 5'1" Weight: 170lbs. oz. 77.373756vl; 36.30 BMI Method: General Appearance: No Apparent Distress, Chronically ill, Obese HEENT: PERRL/EOMI, Moist Mucous Membranes Neck: Normal Inspection, Supple Respiratory: Lungs Clear, Other (on 10lpm HFNC) Cardiovascular: No Murmur, Systolic Murmur, Irregularly Irregular, Tachycardia Gastrointestinal: Normal Bowel Sounds, Non Tender, Soft Extremity: No Calf Tenderness, No Pedal Edema Neurologic/Psychiatric: Alert, Oriented x3 Skin: Normal Color, Warm/Dry A/P-Cardiology Admission Diagnosis Paroxysmal atrial fibrillation COVID-19 Pneumonia Hypertension Hyperlipidemia Assessment/Plan Paroxysmal atrial fibrillation, currently on Cardizem drip, heart rate is better controlled. Continue with current medication, continue to monitor heart rate and blood pressure Increased risk of stroke, maintained on Eliquis, continue to monitor COVID-19 pneumonia, receiving treatment management per primary care team Hypertension, controlled on current medication, monitor blood pressure Hyperlipidemia, continue to monitor lipids Clinical Quality Measures DVT/VTE Risk/Contraindication: Risk Factor Score Per Nursin RFS Level Per Nursing on Admit: 4+=Very High MARCELO PÉREZ MD Dec 17, 2019 10:53
--- NOTE | 2019-12-17 11:14 | Progress Note - Hospitalist ---
Subjective HPI/CC On Admission Date Seen by Provider: Dec 17, 2019 Time Seen by Provider: 09:34 Pt is a n 84yoCF with a PMH of a-fib, ICH, HTN, HLD who presented to the ER due to worsening COVID symptoms. She developed COVID symptoms 12 days ago and was tested positive 10 days ago after attending a wedding where there have now been multiple COVID cases. She was doing ok at home but became more short of breath yesterday. She reports a temperature around 100. She told the ER due was more weak and that it was hard to walk but to me states the difficulty walking was from her need for a hip replacement. She was treated with Azithromycin, decadron, and cefdinir as an outpatient and did well with that until yesterday. Subjective/Events-last exam Pt reports doing well. No complaints. Focused Exam Lactate Level 12/15/19 20:50: Lactic Acid Level 1.78 Objective Exam Vital Signs Vital Signs Date Time Temp Pulse Resp B/P (MAP) Pulse Ox O2 Delivery O2 Flow Rate FiO2 12/17/19 08:00 95 High Flow N/C 10.00 12/17/19 08:00 93 42 124/81 (95) 12/17/19 06:52 36.8 12/16/19 00:53 21 Capillary Refill : Less Than 3 Seconds Results/Procedures Lab Laboratory Tests 12/17/19 05:45 Patient resulted labs reviewed. Imaging: Reviewed Imaging Report Assessment/Plan Assessment and Plan Assess & Plan/Chief Complaint COVID19 PNA Generalized weakness Decadron PT Discussed convalescent plasma and EUA status, patient agrees, will order No true hypoxia documented and outside of window for Remdesivir Cefepime for pna IS MAT A-fib COntinue metoprolol and eliquis Rate controlled HTN BP well controlled, hold Losartan HLD Continue home meds DVT ppx: Eliquis Clinical Quality Measures DVT/VTE Risk/Contraindication: Risk Factor Score Per Nursin RFS Level Per Nursing on Admit: 4+=Very High MARIOLA SALMERON MD Dec 17, 2019 11:14
[2019-12-17] MEDS ORDERED: WATER (STERILE) FOR INJECTION 10 ML ONE (14:58)
--- NOTE | 2019-12-17 23:00 | NUR ---
PATIENT ATTEMPTING TO GET OUT OF BED, STATED NEEDS TO HAVE A BM, PLACED ON BED ALMANZAR. NOTED TO HAVE A FEVER OF 39 DEGREES CELSIUS. HEART RATE INCREASING TO 160'S, PATIENT ON CARDIZEM DRIP AT 5MG/HOUR, INCREASED PER PROTOCOL. TYLENOL GIVEN FOR FEVER. PATIENT DESATING ON 4L HIGH FLOW NC. INCREASED TO 15L. RT CALLED AND VAPOTHERM PLACED ON PATIENT. EICU NOTIFIED OF PATIENT'S HR, TEMP, RESPIRATORY STATUS AND B/P. PATIENT IS BELLY BREATHING AND SKIN IS MOTTLED. EICU ORDERS BIPAP TO BE PLACED ON PATIENT, LAB ORDERS PLACED BY EICU. PATIENT GIVEN LASIX AND IV METOPROLOL PER EICU ORDE 0000- PATIENT'S TEMP IS DECREASING, AND RESPIRATORY STATUS IS IMPROVING. B/P NOT ELEVATED. EICU DOCTOR NOTIFED OF LACTIC ACID AND PATIENT'S IMPROVING STATUS, NO NEW ORDERS RECEIVED.
[2019-12-17] MEDS ORDERED: meTOprolol 5 MG/5 ML (LOPRESSOR) VIAL IV ONE ×2 (23:15→23:30)
[2019-12-17] MEDS ORDERED: FUROSEMIDE 40 MG/4 ML INJ (LASIX) ONE (23:23)
[2019-12-17] MEDS ORDERED: FUROSEMIDE 40 MG/4 ML INJ (LASIX) IVP ONE (23:30)
[2019-12-18] VITALS (26 sets, daily range): BP systolic 93–152; BP diastolic 49–108
[2019-12-18] LABS: ABG BASE EXCESS -1.2 MMOL/L (-2.5-2.5); ABG OXYGEN SATURATION 99 % (94-100); ABG PCO2 39 MMHG (35-45); ABG PH 7.39 (7.37-7.43); ABG PO2 139 MMHG (79-93); ABG TCO2 23.8 MMOL/L (21.0-31.0)
[2019-12-18 00:01] LABS: ALLENS TEST POSITIVE; INSPIRED O2 100 BIPAP; PATIENT TEMP 38.8; VENTILATOR NO
[2019-12-18] MEDS: RT-ALBUTEROL INHALER HFA (VENTOLIN HFA) 18 GM IH SCH ×4 (01:48→21:51)
[2019-12-18 02:10] LABS: BASOPHILS % (AUTO) 0 % (0-10); EOSINOPHILS % (AUTO) 0 % (0-10); HEMATOCRIT 41 % (35-52); HEMOGLOBIN 13.6 g/dL (11.5-16.0); LYMPHOCYTES # (AUTO) 0.6 10^3/uL (1.0-4.0); LYMPHOCYTES % (AUTO) 3 % (12-44); MEAN CORPUSCULAR HEMOGLOBIN 34 pg (25-34); MEAN CORPUSCULAR HGB CONC 33 g/dL (32-36); MEAN CORPUSCULAR VOLUME 101 fL (80-99); MEAN PLATELET VOLUME 10.1 fL (9.0-12.2); MONOCYTES # (AUTO) 1.8 10^3/uL (0.0-1.0); MONOCYTES % (AUTO) 10 % (0-12); NEUTROPHILS # (AUTO) 16.1 10^3/uL (1.8-7.8); NEUTROPHILS % (AUTO) 86 % (42-75); PLATELET COUNT 224 10^3/uL (130-400); WHITE BLOOD COUNT 18.6 10^3/uL (4.3-11.0)
[2019-12-18 02:18] LABS: CHLORIDE 102 MMOL/L (98-107); POTASSIUM 4.1 MMOL/L (3.6-5.0)
[2019-12-18 02:19] LABS: SODIUM 134 MMOL/L (135-145)
[2019-12-18 02:20] LABS: CALCIUM 8.6 MG/DL (8.5-10.1); GLUCOSE 150 MG/DL (70-105)
[2019-12-18 02:22] LABS: CARBON DIOXIDE 21 MMOL/L (21-32)
[2019-12-18 02:24] LABS: CREATININE SERUM 0.86 MG/DL (0.60-1.30); GFR ESTIMATED > 60; PHOSPHORUS 2.1 MG/DL (2.3-4.7)
[2019-12-18 02:25] LABS: BUN/CREATININE RATIO 24
[2019-12-18 02:27] LABS: MAGNESIUM 1.7 MG/DL (1.6-2.4)
[2019-12-18] MEDS: POTASSIUM CL 10MEQ/50ML IVPB 50 ML IV SCH (03:46)
[2019-12-18] MEDS: KCL 20 MEQ TAB (K-DUR) PO SCH (03:46)
--- NOTE | 2019-12-18 05:02 | Pulmonary Consultation ---
History of Present Illness History of Present Illness Date Seen by Provider: Dec 18, 2019 Time Seen by Provider: 04:59 Date of Admission Reason for Visit: Atrial fibrillation Allergies and Home Medications Allergies Coded Allergies: lisinopril (Verified Adverse Reaction, Unknown, COUGH, 03/01/15) Home Medications Apixaban 5 Mg Tablet, 5 MG PO BID, (Reported) Cefdinir 300 Mg Capsule, 300 MG PO BID, (Reported) Rx on 12/12/19 Losartan Potassium 50 Mg Tablet, 50 MG PO DAILY, (Reported) Metoprolol Succinate 100 Mg Tab.er.24h, 100 MG PO BID, (Reported) BRAND NAME ONLY Rosuvastatin Calcium 5 Mg Tablet, 5 MG PO DAILY, (Reported) Past Sgzfdgs-Xpzvfh-Oftxpi Hx Past Med/Social Hx: Reviewed and Corrections made Patient Social History Alcohol Use: Denies Use Recreational Drug Use: No Smoking Status: Never a Smoker Recent Foreign Travel: No Contact w/Someone Who Travel: No Recent Infectious Disease Expo: Yes Immunizations Up To Date Tetanus Booster (TDap): Unknown Past Medical History Surgeries: Yes ( X 1) Section Respiratory: No Cardiac: Yes (CHRONIC ATRIAL FIBRILLATION, ON ELIQUIS) Atrial Fibrillation, Cardiomyopathy, High Cholesterol, Hypertension Neurological: Yes (HEMORRHAGIC AND ISCHEMIC CVA'S SUMMER 2019; CEREBRAL ANEURYSM-NO SURG) 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 oz. 77.768196xa; 36.30 BMI Method: Exam Exam Vital Signs Date Time Temp Pulse Resp B/P (MAP) Pulse Ox O2 Delivery O2 Flow Rate FiO2 12/18/19 03:58 36.0 96 Vapotherm 30.00 60.00 12/18/19 02:00 74 23 95/65 (75) 92 Vapotherm 30.00 70.00 12/18/19 01:48 93 Vapotherm 30.00 70 12/18/19 01:30 36.8 12/18/19 01:00 96 31 126/86 (99) 95 High Flow N/C 5.00 12/18/19 00:30 110 37 145/86 (105) 95 High Flow N/C 5.00 12/18/19 00:00 38.6 12/18/19 00:00 125 34 131/103 (112) 96 High Flow N/C 5.00 12/18/19 00:00 92 NIV Bilevel 4.00 100 12/17/19 23:20 38.8 12/17/19 23:11 93 Vapotherm 40.00 100 12/17/19 23:10 92 NIV Bilevel 100.00 12/17/19 23:00 154 37 207/145 (165) High Flow N/C 5.00 12/17/19 23:00 85 High Flow N/C 15.00 12/17/19 22:50 39.0 12/17/19 22:18 97 High Flow N/C 5.00 12/17/19 22:00 105 35 149/112 (124) 95 High Flow N/C 4.00 12/17/19 21:40 124 31 97 100.00 12/17/19 21:00 87 28 143/101 (115) 95 High Flow N/C 4.00 12/17/19 20:04 37.0 91 22 144/89 (107) 92 High Flow N/C 4.00 12/17/19 20:00 95 High Flow N/C 4.00 12/17/19 19:00 85 12/17/19 19:00 85 159/82 (107) High Flow N/C 4.00 12/17/19 18:56 93 Room Air 7.00 12/17/19 18:00 84 142/94 (110) 95 High Flow N/C 4.00 12/17/19 17:00 82 140/90 (107) 95 High Flow N/C 4.00 12/17/19 16:00 95 High Flow N/C 10.00 12/17/19 16:00 79 146/80 (102) 94 High Flow N/C 4.00 12/17/19 15:00 90 135/86 (102) 93 High Flow N/C 4.00 12/17/19 14:00 81 93 High Flow N/C 4.00 12/17/19 13:59 95 Nasal Cannula 7.00 12/17/19 13:00 80 95 High Flow N/C 6.00 12/17/19 12:33 81 12/17/19 12:00 80 122/73 (89) 94 High Flow N/C 6.00 12/17/19 12:00 95 High Flow N/C 10.00 12/17/19 11:00 79 107/80 (89) 93 High Flow N/C 10.00 12/17/19 10:00 82 114/77 (90) 94 High Flow N/C 10.00 12/17/19 09:00 79 120/79 (94) 93 High Flow N/C 10.00 12/17/19 08:00 95 High Flow N/C 10.00 12/17/19 08:00 93 42 124/81 (95) 90 High Flow N/C 10.00 12/17/19 07:45 108 26 129/94 (103) High Flow N/C 10.00 12/17/19 07:30 94 130/118 (122) High Flow N/C 10.00 12/17/19 07:20 93 Nasal Cannula 10.00 12/17/19 07:15 87 25 112/70 (87) 91 High Flow N/C 10.00 12/17/19 07:00 83 29 112/71 (96) 92 High Flow N/C 10.00 12/17/19 07:00 86 12/17/19 06:52 36.8 93 High Flow N/C 10.00 12/17/19 06:00 101 31 126/78 (94) 93 High Flow N/C 15.00 12/17/19 05:45 105 32 120/85 (97) 93 High Flow N/C 15.00 12/17/19 05:30 114 32 114/81 (92) 93 High Flow N/C 15.00 12/17/19 05:15 110 30 125/84 (98) 92 High Flow N/C 15.00 12/17/19 05:00 133 30 106/89 (95) 92 High Flow N/C 15.00 I & O 12/18/19 07:00 Intake Total 1200 ml Output Total 2600 ml Balance -1400 ml Height & Weight Height: 5'1" Weight: 170lbs. oz. 77.462550uh; 36.30 BMI Method: General Appearance: No Apparent Distress, WD/WN HEENT: PERRL/EOMI, Moist Mucous Membranes Neck: Normal Inspection, Supple Respiratory: Decreased Breath Sounds; No Rhonci, No Wheezing; Other (on 3lpm NC) Cardiovascular: No JVD, No Murmur, Irregularly Irregular Capillary Refill: Less Than 3 Seconds Gastrointestinal: non tender, soft Extremity: Normal Capillary Refill, No Calf Tenderness, No Pedal Edema Neurologic/Psychiatric: Alert, Oriented x3, Normal Mood/Affect Skin: Normal Color, Warm/Dry Results Lab Laboratory Tests 12/16/19 05:10 12/16/19 05:30 12/17/19 05:45 12/18/19 01:49 Assessment/Plan Assessment/Plan Acute respiratory failure -Pt is currently requiring HIgh flow Vapotherm -Check BNP -Persistent fever -Repeating BC -Check PCT -add Vancomycin to Cefepime -PRN BiPAP COVID19- Tm 39.6 over last 24hours -Decadron 6mg IV daily -s/p 1 unit plasma -Will give another unit of CVP -Outside of window for remdesivir per [facility] guidelines. PNA -Currently on Cefepime Generalized weakness PT/OT IS MAT A-fib with RVR Cardizem gtt Cardiology consulted HTN -Monitor DVT ppx: MEET Warner DO Dec 18, 2019 05:02
[2019-12-18] MEDS ORDERED: FUROSEMIDE 40 MG/4 ML INJ (LASIX) IVP ONE (05:15)
[2019-12-18] MEDS ORDERED: VANCOMYCIN INJECTION 1,000 MG in NS (IVPB) 250 ML IV SCH (05:30)
[2019-12-18] MEDS ORDERED: PHARMACY TO DOSE IV SCH (05:30)
[2019-12-18] MEDS ORDERED: VANCOMYCIN 1000 MG/VIAL ONE (06:14)
[2019-12-18] MEDS ORDERED: NS (IVPB) 250 ML ONE (06:14)
[2019-12-18] MEDS ORDERED: CEFEPIME 1 GM/10 ML (MAXIPIME) VIAL ONE (06:17)
[2019-12-18] MEDS ORDERED: WATER (STERILE) FOR INJECTION 10 ML ONE (06:18)
[2019-12-18] MEDS: CEFEPIME 1,000 MG/SWFI 10 ML IV PUSH IV SCH ×6 (06:41→17:24)
[2019-12-18] MEDS: MAGNESIUM 1 GM/100 ML IVPB 100 ML IV SCH ×3 (06:42→10:16)
[2019-12-18] MEDS: VANCOMYCIN 1 GM/NS 250 ML IVPB IV SCH ×4 (06:54→10:16)
--- NOTE | 2019-12-18 07:23 | NUR ---
PTD VANCOMYCIN LABS" SCR 0.85(0.89) PLAN: VANCOMYCIN 2,000MG IV X 1 THIS AM (VANCOMYCIN 1GRAM/250ML Q1H X 2 DOSES). THEN CHANGE TO VANCOMYCIN 1,250MG IV [id number]. WILL CHECK A TROUGH PRIOR TO 3RD DOSE AND EVALUATE AND ADJUST IF NEEDED.
[2019-12-18 08:11] LABS: BILIRUBIN,URINE NEGATIVE (NEGATIVE); CLARITY,URINE CLEAR; COLOR,URINE YELLOW; GLUCOSE, URINE (UA) NEGATIVE (NEGATIVE); KETONES,URINE NEGATIVE (NEGATIVE); LEUKOCYTE ESTERASE ,URINE NEGATIVE (NEGATIVE); NITRITE,URINE NEGATIVE (NEGATIVE); PROTEIN,URINE NEGATIVE (NEGATIVE)
[2019-12-18 08:18] LABS: BACTERIA,URINE NEGATIVE /HPF; HYALINE CASTS, URINE 0-2 /LPF; RBC,URINE 0-2 /HPF; WBC,URINE RARE /HPF
--- NOTE | 2019-12-18 08:29 | Physical Therapy Progress Note ---
Therapy Progress Note Patient transferred to ICU. PT will require new orders to continue. JAMEEL LOPEZ PT Dec 18, 2019 08:29
[2019-12-18] MEDS ORDERED: KCL 20 MEQ TAB (K-DUR) PO ONE (09:00)
[2019-12-18] MEDS: ROSUVASTATIN 5 MG (CRESTOR) TABLET PO SCH (09:42)
[2019-12-18] MEDS: meTOprolol SUCCINATE 100 MG (TOPROL XL) TAB PO SCH ×2 (09:43→20:19)
[2019-12-18] MEDS: APIXABAN 5 MG (ELIQUIS) TABLET PO SCH ×2 (09:43→20:19)
--- NOTE | 2019-12-18 14:41 | Progress Note - Cardiology ---
Cardiology SOAP Progress Note Objective: I&O/Vital Signs 12/18/19 12/18/19 12/18/19 12/18/19 03:00 03:58 04:00 04:00 Temp 36.0 Pulse 72 75 Resp 22 B/P (MAP) 101/59 (73) 93/65 (74) Pulse Ox 100 96 96 95 O2 Delivery Vapotherm Vapotherm Vapotherm Vapotherm O2 Flow Rate 30.00 30.00 30.00 40.00 70.00 60.00 60.00 FiO2 60 12/18/19 12/18/19 12/18/19 12/18/19 05:00 06:00 06:51 07:00 Pulse 61 60 80 75 Resp 32 36 48 B/P (MAP) 103/71 (82) 123/83 (96) 152/108 (123) Pulse Ox 94 97 95 O2 Delivery Vapotherm Vapotherm Vapotherm O2 Flow Rate 30.00 30.00 30.00 60.00 60.00 60.00 12/18/19 12/18/19 12/18/19 12/18/19 08:00 08:00 08:00 09:00 Temp 36.6 Pulse 74 70 Resp 25 B/P (MAP) 119/77 (91) 118/86 (97) Pulse Ox 99 89 94 O2 Delivery Vapotherm Vapotherm Vapotherm O2 Flow Rate 30.00 30.00 30.00 60.00 60.00 FiO2 60 12/18/19 12/18/19 12/18/19 12/18/19 09:48 10:00 11:00 12:00 Temp 36.8 Pulse 89 79 Resp 47 B/P (MAP) 118/74 (89) 122/75 (91) Pulse Ox 98 91 96 O2 Delivery Vapotherm Vapotherm Vapotherm O2 Flow Rate 30.00 30.00 30.00 60.00 60.00 FiO2 60 12/18/19 12/18/19 12:00 12:00 Pulse 88 B/P (MAP) 106/49 (68) Pulse Ox 93 94 O2 Delivery Vapotherm Vapotherm O2 Flow Rate 30.00 30.00 60.00 FiO2 50 12/17/19 23:59 Intake Total 850 ml Output Total 2300 ml Balance -1450 ml Weight (Pounds): 170 Weight (Calculated Kilograms): 77.145812 Results/Procedures: Labs Laboratory Tests 12/17/19 23:40: Lactic Acid Level 3.29*H 12/17/19 23:43: Blood Gas Puncture Site RIGHT RADIAL, Blood Gas Patient Temperature 38.8, Arterial Blood pH 7.39, Arterial Blood Partial Pressure CO2 39, Arterial Blood Partial Pressure O2 139H, Arterial Blood HCO3 23, Arterial Blood Total CO2 23.8, Arterial Blood Oxygen Saturation 99, Arterial Blood Base Excess -1.2, Josemanuel Test POSITIVE, Blood Gas Ventilator Setting NO, Blood Gas Inspired Oxygen 100 BIPAP 12/18/19 00:35: Procalcitonin 0.03 12/18/19 01:49: Lactic Acid Level 1.92, White Blood Count 18.6H, Red Blood Count 4.06, Hemoglobin 13.6, Hematocrit 41, Mean Corpuscular Volume 101H, Mean Corpuscular Hemoglobin 34, Mean Corpuscular Hemoglobin Concent 33, Red Cell Distribution Width 12.4, Platelet Count 224, Mean Platelet Volume 10.1, Immature Granulocyte % (Auto) 1, Neutrophils (%) (Auto) 86H, Lymphocytes (%) (Auto) 3L, Monocytes (%) (Auto) 10, Eosinophils (%) (Auto) 0, Basophils (%) (Auto) 0, Neutrophils # (Auto) 16.1H, Lymphocytes # (Auto) 0.6L, Monocytes # (Auto) 1.8H, Eosinophils # (Auto) 0.0, Basophils # (Auto) 0.0, Immature Granulocyte # (Auto) 0.2H, D-Dimer 1.38H, Sodium Level 134L, Potassium Level 4.1, Chloride Level 102, Carbon Dioxide Level 21, Anion Gap 11, Blood Urea Nitrogen 21H, Creatinine 0.86, Estimat Glomerular Filtration Rate > 60, BUN/Creatinine Ratio 24, Glucose Level 150H, Calcium Level 8.6, Phosphorus Level 2.1L, Magnesium Level 1.7, B-Type Natriuretic Peptide 373.1H 12/18/19 07:00: Urine Color YELLOW, Urine Clarity CLEAR, Urine pH 6.0, Urine Specific [place] 1.010L, Urine Protein NEGATIVE, Urine Glucose (UA) NEGATIVE, Urine Ketones NEGATIVE, Urine Nitrite NEGATIVE, Urine Bilirubin NEGATIVE, Urine Urobilinogen 0.2, Urine Leukocyte Esterase NEGATIVE, Urine RBC (Auto) TRACE-L, Urine RBC 0-2, Urine WBC RARE, Urine Crystals NONE, Urine Bacteria NEGATIVE, Urine Casts PRESENT, Urine Hyaline Casts 0-2H, Urine Mucus NEGATIVE, Urine Culture Indicated NO 12/18/19 12:28: Lab Scanned Report Transfusion Reaction Form Microbiology 12/17/19 MRSA Screen - Final, Complete MRSA not isolated 12/15/19 Blood Culture - Preliminary, Resulted No growth Laboratory Tests 12/17/19 05:45 12/18/19 01:49 A/P: Assessment: Ac resp failure precipitated by COVID-19 pneumonia Paroxysmal atrial fibrillation precipitated by the above diagnosis H/o hypertension, none currently H/o hyperlipidemia Plan: * Long-acting oral dilt to control heart rate * Oral apixaban for stroke prophylaxis * Replenish lytes * Monitor lytes and renal function MUSA ATKINSON MD FACP [facility] Dec 18, 2019 14:40
--- NOTE | 2019-12-18 17:59 | Physician Query Clarification ---
"Physician Query-General Query to Physician: The medical record reflects the following clinical scenario: History/Risk factors: Pneumonia, COVID 19 Clinical Findings: Admission VS: HR 118, RR 32, T 37.6, Treatment: IV ABX, IV Fluids 2L in ER, IV Steroids Question: What condition best reflects the above clinical scenario? Please document response in the Progress notes or Discharge Summary. 1. Sepsis present on admission due to Covid 19, pneumonia 2. Covid 19, pneumonia (as currently documented) 3.. Other , with explanation of the clinical findings 4. Clinically undetermined, no explanation for the clinical findings Please remember a lack of response to the above will prompt a phone page by CDI/coding staff In responding to this query, please exercise your independent professional judgment. The purpose of this communication is to more accurately reflect the complexity of your patients condition. The fact that a question is asked does not imply that any particular answer is desired or expected. Thank you for timely response to this clarification. Elaine Marti, MSN, RN RN Specialist-Clinical Doc Improvement CD -Health Info [facility] Operations [address] [facility] t: [phone] | f: [phone] If you are unable to reach me at my extension, I may be working from home. Please contact me at [phone] PHYSICIAN RESPONSE: Based on the clinical findings in the record, please respond to the query above on this document as an addendum. Physician Response: Physician Response 1 If you have questions please contact: Automotive Teacher: Ext: Thank you for your time and cooperation. Clinical Office Machines Sales Representative/Automotive Teacher This is a permanent part of the medical record ELAINE MARTI Dec 18, 2019 17:59 GURVINDER ZELAYA MD Dec 25, 2019 11:28"
[2019-12-19] VITALS (15 sets, daily range): BP systolic 108–135; BP diastolic 58–92
[2019-12-19] MEDS: CEFEPIME 1,000 MG/SWFI 10 ML IV PUSH IV SCH ×4 (00:33→05:16)
[2019-12-19] MEDS ORDERED: VANCOMYCIN 1 GM/NS 250 ML IVPB IV SCH ×2 (01:00)
[2019-12-19] MEDS: RT-ALBUTEROL INHALER HFA (VENTOLIN HFA) 18 GM IH SCH ×4 (03:00→20:53)
[2019-12-19] MEDS: MAGNESIUM 1 GM/100 ML IVPB 100 ML IV SCH (03:12)
[2019-12-19] MEDS: KCL 20 MEQ TAB (K-DUR) PO SCH (03:12)
[2019-12-19] MEDS: POTASSIUM CL 10MEQ/50ML IVPB 50 ML IV SCH (03:12)
[2019-12-19 03:20] LABS: BASOPHILS % (AUTO) 0 % (0-10); EOSINOPHILS % (AUTO) 0 % (0-10); HEMATOCRIT 38 % (35-52); HEMOGLOBIN 12.6 g/dL (11.5-16.0); LYMPHOCYTES % (AUTO) 7 % (12-44); MEAN CORPUSCULAR HEMOGLOBIN 34 pg (25-34); MEAN CORPUSCULAR HGB CONC 33 g/dL (32-36); MEAN CORPUSCULAR VOLUME 101 fL (80-99); MEAN PLATELET VOLUME 10.3 fL (9.0-12.2); MONOCYTES # (AUTO) 0.8 10^3/uL (0.0-1.0); MONOCYTES % (AUTO) 6 % (0-12); NEUTROPHILS # (AUTO) 11.7 10^3/uL (1.8-7.8); NEUTROPHILS % (AUTO) 86 % (42-75); PLATELET COUNT 229 10^3/uL (130-400); WHITE BLOOD COUNT 13.6 10^3/uL (4.3-11.0)
[2019-12-19 03:35] LABS: POTASSIUM 4.7 MMOL/L (3.6-5.0)
[2019-12-19 03:36] LABS: CALCIUM 8.7 MG/DL (8.5-10.1)
[2019-12-19 03:41] LABS: CREATININE SERUM 0.93 MG/DL (0.60-1.30); PHOSPHORUS 2.5 MG/DL (2.3-4.7)
[2019-12-19 03:43] LABS: MAGNESIUM 2.2 MG/DL (1.6-2.4)
[2019-12-19] MEDS ORDERED: FUROSEMIDE 40 MG/4 ML INJ (LASIX) IVP ONE (04:45)
--- NOTE | 2019-12-19 04:51 | Pulmonary Progress Note ---
Subjective Time Seen by a Provider: 04:44 Subjective/Events-last exam Pt appears to be doing better. Sepsis Event Evaluation Height, Weight, BMI Height: 5'1" Weight: 170lbs. oz. 77.664807jq; 36.30 BMI Method: Focused Exam Lactate Level 12/17/19 23:40: Lactic Acid Level 3.29*H 12/18/19 01:49: Lactic Acid Level 1.92 Exam Exam Vital Signs Date Time Temp Pulse Resp B/P (MAP) Pulse Ox O2 Delivery O2 Flow Rate FiO2 12/19/19 03:00 93 Vapotherm 20.00 45 12/19/19 01:00 73 12/19/19 00:00 80 120/81 (94) 92 Vapotherm 20.00 45.00 12/18/19 23:59 95 Vapotherm 20.00 45 12/18/19 23:00 78 121/78 (92) 92 Vapotherm 20.00 45.00 12/18/19 22:00 75 118/73 (88) 93 Vapotherm 20.00 45.00 12/18/19 21:51 94 Vapotherm 20.00 45 12/18/19 21:00 67 28 116/70 (85) 94 Vapotherm 20.00 45.00 12/18/19 20:25 Vapotherm 20.00 45.00 12/18/19 20:14 36.9 69 24 116/77 (90) 94 Vapotherm 30.00 50.00 12/18/19 20:00 95 Vapotherm 25.00 50 12/18/19 20:00 76 28 116/77 (90) 93 Vapotherm 30.00 60.00 12/18/19 19:00 61 12/18/19 19:00 61 32 118/85 (96) 94 Vapotherm 30.00 60.00 12/18/19 18:00 69 30 106/75 (85) 93 Vapotherm 30.00 60.00 12/18/19 17:00 64 35 117/79 (92) 95 Vapotherm 30.00 60.00 12/18/19 16:14 97 Vapotherm 30.00 50 12/18/19 16:12 36.1 12/18/19 16:00 71 118/81 (93) 94 Vapotherm 30.00 60.00 12/18/19 15:00 82 113/86 (95) 95 Vapotherm 30.00 60.00 12/18/19 14:00 75 122/83 (96) 95 Vapotherm 30.00 60.00 12/18/19 13:00 76 121/69 (86) 93 Vapotherm 30.00 60.00 12/18/19 12:37 90 12/18/19 12:00 94 Vapotherm 30.00 50 12/18/19 12:00 88 106/49 (68) 93 Vapotherm 30.00 60.00 12/18/19 12:00 36.8 12/18/19 11:00 79 122/75 (91) 96 Vapotherm 30.00 60.00 12/18/19 10:00 89 47 118/74 (89) 91 Vapotherm 30.00 60.00 12/18/19 09:48 98 Vapotherm 30.00 60 12/18/19 09:00 70 25 118/86 (97) 94 Vapotherm 30.00 60.00 12/18/19 08:00 36.6 12/18/19 08:00 74 119/77 (91) 89 Vapotherm 30.00 60.00 12/18/19 08:00 99 Vapotherm 30.00 60 12/18/19 07:00 75 48 152/108 (123) 95 Vapotherm 30.00 60.00 12/18/19 06:51 80 12/18/19 06:00 60 36 123/83 (96) 97 Vapotherm 30.00 60.00 12/18/19 05:00 61 32 103/71 (82) 94 Vapotherm 30.00 60.00 I & O 12/19/19 07:00 Intake Total 975 ml Output Total 2675 ml Balance -1700 ml Height & Weight Height: 5'1" Weight: 170lbs. oz. 77.167129ut; 36.30 BMI Method: General Appearance: No Apparent Distress, WD/WN HEENT: PERRL/EOMI, Moist Mucous Membranes Neck: Normal Inspection, Supple Respiratory: Decreased Breath Sounds; No Rhonci, No Wheezing; Other (on 3lpm NC) Cardiovascular: No JVD, No Murmur, Irregularly Irregular Capillary Refill: Less Than 3 Seconds Gastrointestinal: non tender, soft Extremity: Normal Capillary Refill, No Calf Tenderness, No Pedal Edema Neurologic/Psychiatric: Alert, Oriented x3, Normal Mood/Affect Skin: Normal Color, Warm/Dry Results Lab Laboratory Tests 12/17/19 05:45 12/18/19 01:49 12/19/19 02:41 Assessment/Plan Assessment/Plan Acute respiratory failure -Pt is currently requiring HIgh flow Vapotherm 40% -Give Lasix 40mg IV x 1 -Persistent fever -Repeating BC -PCT -- is normal - Vancomycin to Cefepime -MRSA is negative D/C vanco -Cultures and UA are negative thus far. -PRN BiPAP COVID19- Tm 39.6 over last 24hours -Decadron 6mg IV daily -s/p 1 unit plasma -Will give another unit of CVP -- pending -Outside of window for remdesivir per [place] guidelines. PNA -Currently on Cefepime Hx of dementia Generalized weakness PT/OT IS MAT A-fib with RVR Cardizem gtt -- No on PO Cardizem. Cardiology consulted HTN -Monitor DVT ppx: MEET Warner DO Dec 19, 2019 04:51
[2019-12-19] MEDS ORDERED: VANCOMYCIN 1250 MG/NS 250 ML IVPB IV SCH ×2 (07:00)
--- NOTE | 2019-12-19 08:27 | Physical Therapy Progress Note ---
Therapy Progress Note PT will require new orders with ICU transfer. PT will consult with SARA. JAMEEL LOPEZ PT Dec 19, 2019 08:27
--- NOTE | 2019-12-19 08:36 | NUR ---
REPORT CALLED TO SARA GEIGER.
[2019-12-19] MEDS: APIXABAN 5 MG (ELIQUIS) TABLET PO SCH ×2 (08:52→21:40)
[2019-12-19] MEDS: meTOprolol SUCCINATE 100 MG (TOPROL XL) TAB PO SCH ×2 (08:52→21:41)
[2019-12-19] MEDS: ROSUVASTATIN 5 MG (CRESTOR) TABLET PO SCH (08:52)
--- NOTE | 2019-12-19 09:17 | NUR ---
PT TRANSPORTED TO ROOM 433 VIA PT BED WITH THIS RN AT [facility] AND [facility] GARCIA AT [facility]. PT TRANSPORTED ON H[place] NC 10L. PT ARRIVED TO ROOM 433 IN NO APPARENT DISTRESS. VAPOTHERM APPLIED AT 20L 45%. RODGERS CATHETER AND IV X2 INTACT. SARA GEIGER NOTIFIED OF PT ARRIVAL.
--- NOTE | 2019-12-19 09:20 | NUR ---
PATIENT TO ROOM 433. PATIENT ORIENTED TO ROOM AND CALL LIGHT. REPORT RECEIVED FROM ELOY RUIZ. PATIENT DENIES ANY PAIN OR DISCOMFORT AT THIS TIME. WILL ASSUME CARE OF PATIENT AT THIS TIME.
--- NOTE | 2019-12-19 12:16 | Physical Therapy Daily Note ---
PT Daily Note-Current Subjective Patient transferred to 433 from ICU with PT receiving new orders. Patient agrees to PT. Mental Status Patient Orientation: Person, Time, Situation Attachments: Oxygen (Vapotherm), Villalba Catheter Transfers SCALE: Activities may be completed with or without assistive devices. 5-Cyatupawtd-mtmcnfh completes the activity by him/herself with no assistance fr om a helper. 5-Set-up or Clean-up Assistance-helper sets up or cleans up; patient completes activity. [place] assists only prior to or following the activity. 4-Supervision or Touching Assistance-helper provides verbal cues and/or touching/steadying and/or contact guard assistance as patient completes activity. Assistance may be provided throughout the activity or intermittently. 3-Partial/Moderate Assistance-helper does LESS THAN HALF the effort. [place] lifts, holds or supports trunk or limbs, but provides less than half the effort. 2-Substantial/Maximal Assistance-helper does MORE THAN HALF the effort. [place] lifts or holds trunk or limbs and provides more than half the effort. 0-Gehxpmyzx-ewtugh does ALL the effort. Patient does none of the effort to complete the activity. Or, the assistance of 2 or more helpers is required for the patient to complete the activity. If activity was not attempted, code reason: 7-Patient Refused. 9-Not Applicable-not attempted and the patient did not perform the activity before the current illness, exacerbation or injury. 10-Not Attempted due to Environmental Limitations-(lack of equipment, weather restraints, etc.). 88-Not Attempted due to Medical Conditions or Safety Concerns. Roll Left & Right (QC): 4 Lying to Sitting/Side of Bed(Q: 4 Sit to Stand (QC): 2 Chair/Xfj-rd-Pyqwp Xfer(QC): 2 Gait Training Does the Patient Walk?: No and Walking Goal IS indicated Distance: 5' Walk 10 feet (QC): 88 Walk 50 ft with 2 Turns(QC): 88 Walk 150 ft (QC): 88 Gait Assistive Device: FWW slightly unsteady with all mobility Exercises Seated Therapy Exercises: Ankle pumps, Long arc quads Seated Reps: 15 Assessment Patient reassessed with mobility. Goals remain same. Increase activity as tolerated by patient. PT Intermediate Goals Intermediate Goals PT Intermediate Goals Time Frame: Jan 06, 2020 Roll Left & Right (QC): 6 Sit to Lying (QC): 6 Lying-Sitting on Side/Bed(QC): 6 Sit to Stand (QC): 6 Chair/Dcx-cq-Ebvxy Xfer(QC): 6 Toilet Transfer (QC): 6 Walk 10 feet (QC): 6 Walk 50ft with 2 Turns (QC): 6 Walk 150 ft (QC): 6 PT Plan Treatment/Plan Treatment Plan: Continue Plan of Care Treatment Plan: Education, Functional Activity [place], Functional Strength, Gait, Safety, Therapeutic Exercise, Transfers Treatment Duration: Jan 06, 2020 Frequency: 6 times per week Estimated Hrs Per Day: .25 hour per day Patient and/or Family Agrees t: Yes Time/GCodes Time In: 1136 Time Out: 1148 Total Billed Treatment Time: 12 Total Billed Treatment 1 visit REEVAL 12 min JAMEEL LOPEZ PT Dec 19, 2019 12:16
[2019-12-19] MEDS ORDERED: NS IV 500 ML 500 ML ONE (13:26)
[2019-12-20 00:30] VITALS: BP 138/78
[2019-12-20] MEDS: RT-ALBUTEROL INHALER HFA (VENTOLIN HFA) 18 GM IH SCH ×4 (02:36→19:49)
[2019-12-20 03:45] VITALS: BP 140/74
[2019-12-20 04:39] LABS: BASOPHILS % (AUTO) 0 % (0-10); EOSINOPHILS % (AUTO) 0 % (0-10); HEMATOCRIT 38 % (35-52); HEMOGLOBIN 12.9 g/dL (11.5-16.0); LYMPHOCYTES # (AUTO) 1.4 10^3/uL (1.0-4.0); LYMPHOCYTES % (AUTO) 13 % (12-44); MEAN CORPUSCULAR HEMOGLOBIN 34 pg (25-34); MEAN CORPUSCULAR HGB CONC 34 g/dL (32-36); MEAN CORPUSCULAR VOLUME 100 fL (80-99); MEAN PLATELET VOLUME 10.1 fL (9.0-12.2); MONOCYTES % (AUTO) 10 % (0-12); NEUTROPHILS % (AUTO) 76 % (42-75); PLATELET COUNT 274 10^3/uL (130-400); WHITE BLOOD COUNT 10.6 10^3/uL (4.3-11.0)
[2019-12-20 05:02] LABS: CALCIUM 9.1 MG/DL (8.5-10.1); CREATININE SERUM 0.96 MG/DL (0.60-1.30); MAGNESIUM 2.4 MG/DL (1.6-2.4); POTASSIUM 4.4 MMOL/L (3.6-5.0)
[2019-12-20] MEDS ORDERED: TROUGH ORDER-PHARMACY XX ONE (06:00)
[2019-12-20] MEDS: dexAMETHasone 6 MG TAB (DECADRON) PO SCH (06:32)
[2019-12-20 08:00] VITALS: BP 129/76
[2019-12-20] MEDS: ROSUVASTATIN 5 MG (CRESTOR) TABLET PO SCH (08:47)
[2019-12-20] MEDS: APIXABAN 5 MG (ELIQUIS) TABLET PO SCH ×2 (08:47→20:46)
[2019-12-20] MEDS: meTOprolol SUCCINATE 100 MG (TOPROL XL) TAB PO SCH ×2 (08:47→20:46)
--- NOTE | 2019-12-20 11:44 | Progress Note - Hospitalist ---
Subjective HPI/CC On Admission Date Seen by Provider: Dec 20, 2019 Time Seen by Provider: 10:40 Pt is a n 84yoCF with a PMH of a-fib, ICH, HTN, HLD who presented to the ER due to worsening COVID symptoms. She developed COVID symptoms 12 days ago and was tested positive 10 days ago after attending a wedding where there have now been multiple COVID cases. She was doing ok at home but became more short of breath yesterday. She reports a temperature around 100. She told the ER due was more weak and that it was hard to walk but to me states the difficulty walking was from her need for a hip replacement. She was treated with Azithromycin, decadron, and cefdinir as an outpatient and did well with that until yesterday. Subjective/Events-last exam She is feeling better. She is not feeling short of breath. She is eating and drinking. She has no complaints. Focused Exam Lactate Level 12/17/19 23:40: Lactic Acid Level 3.29*H 12/18/19 01:49: Lactic Acid Level 1.92 Objective Exam Vital Signs Vital Signs Date Time Temp Pulse Resp B/P (MAP) Pulse Ox O2 Delivery O2 Flow Rate FiO2 12/20/19 08:00 36.2 69 18 129/76 (93) 92 Vapotherm 20.00 40.00 12/20/19 02:37 40 Capillary Refill : Less Than 3 Seconds General Appearance: No Apparent Distress, Obese Respiratory: Lungs Clear, Normal Breath Sounds, No Respiratory Distress Cardiovascular: Regular Rate, Rhythm, No Edema, No Murmur Gastrointestinal: Normal Bowel Sounds, Non Tender, Soft Extremity: Normal Inspection, Non Tender, No Pedal Edema Neurologic/Psychiatric: Alert, Oriented x3, No Motor/Sensory Deficits, Normal Mood/Affect Skin: Normal Color, Warm/Dry Results/Procedures Lab Laboratory Tests 12/20/19 04:09 Patient resulted labs reviewed. Imaging: Reviewed Imaging Report Assessment/Plan Assessment and Plan Assess & Plan/Chief Complaint Acute respiratory failure due to COVID-19 Pneumonia due to COVID-19 Decadron Outside window for Remdesivir s/p 2 units convalescent plasma Transitioned from high flow to nasal cannula, improving Procalcitonin normal, antibiotics discontinued Hx of dementia Generalized weakness PT/OT Atrial fibrillation Diltiazem Eliquis HTN Monitor DVT Prophylaxis: already receiving therapeutic anticoagulation AFib with RVR, resolved Diagnosis/Problems Diagnosis/Problems (1) Acute respiratory failure due to COVID-19 Status: Acute (2) Pneumonia due to COVID-19 virus Status: Acute Clinical Quality Measures DVT/VTE Risk/Contraindication: Risk Factor Score Per Nursin RFS Level Per Nursing on Admit: 4+=Very High GURVINDER ZELAYA MD Dec 20, 2019 11:44
[2019-12-20 12:00] VITALS: BP 129/73
--- NOTE | 2019-12-20 14:31 | Physical Therapy Daily Note ---
PT Daily Note-Current Subjective Pt laying Supine in bed with HOB raised. Pt agrees to PT for EX. Pain Location: No Pain Reported Mental Status Patient Orientation: Person, Place, Situation Attachments: Villalba Catheter Transfers SCALE: Activities may be completed with or without assistive devices. 5-Bjoixnveku-trvcbge completes the activity by him/herself with no assistance from a helper. 5-Set-up or Clean-up Assistance-helper sets up or cleans up; patient completes activity. [place] assists only prior to or following the activity. 4-Supervision or Touching Assistance-helper provides verbal cues and/or touching/steadying and/or contact guard assistance as patient completes activity. Assistance may be provided throughout the activity or intermittently. 3-Partial/Moderate Assistance-helper does LESS THAN HALF the effort. Agency lif ts, holds or supports trunk or limbs, but provides less than half the effort. 2-Substantial/Maximal Assistance-helper does MORE THAN HALF the effort. Agency lifts or holds trunk or limbs and provides more than half the effort. 7-Pxxlivgpo-rqtxij does ALL the effort. Patient does none of the effort to complete the activity. Or, the assistance of 2 or more helpers is required for the patient to complete the activity. If activity was not attempted, code reason: 7-Patient Refused. 9-Not Applicable-not attempted and the patient did not perform the activity before the current illness, exacerbation or injury. 10-Not Attempted due to Environmental Limitations-(lack of equipment, weather restraints, etc.). 88-Not Attempted due to Medical Conditions or Safety Concerns. Exercises Supine Ex: Ankle pumps, Quad Set, Glut sets, Heel Slides, Straight leg raise, Hip abd/add Supine Reps: 15 Treatments Pt completes Supine Ex with RB as needed. Pt asked to use BR for BM. Pt attempts w/o success. Pt returns to bed to rest at end of tx. All needs met, call light in hand. Assessment Current Status: Good Progress Pt fatigues needing RB, aslso working on strengthening. PT [employer] Goals Nursing Home Goals PT [employer] Principal Goals Time Frame: Jan 06, 2020 Roll Left & Right (QC): 6 Sit to Lying (QC): 6 Lying-Sitting on Side/Bed(QC): 6 Sit to Stand (QC): 6 Chair/Ldj-rd-Uhgqa Xfer(QC): 6 Toilet Transfer (QC): 6 Walk 10 feet (QC): 6 Walk 50ft with 2 Turns (QC): 6 Walk 150 ft (QC): 6 PT Plan Problem List Problem List: Activity Tolerance, Functional Strength, Balance, Gait Treatment/Plan Treatment Plan: Continue Plan of Care Treatment Plan: Education, Functional Activity [place], Functional Strength, Gait, Safety, Therapeutic Exercise, Transfers Treatment Duration: Jan 06, 2020 Frequency: 6 times per week Estimated Hrs Per Day: .25 hour per day Patient and/or Family Agrees t: Yes Safety Risks/Education Patient Education: Gait Training, Transfer Techniques, Correct Positioning, Safety Issues Teaching Recipient: Patient Teaching Methods: Discussion Response to Teaching: Verbalize Understanding Time/GCodes Time In: 1020 Time Out: 1045 Total Billed Treatment Time: 25 Total Billed Treatment 1, FAx2 (25m) RICARDO HERNANDEZ PTA Dec 20, 2019 14:31
[2019-12-20 16:00] VITALS: BP 138/78
[2019-12-20 20:49] VITALS: BP 136/78
[2019-12-21] VITALS (7 sets, daily range): BP systolic 132–162; BP diastolic 70–85
[2019-12-21] MEDS: RT-ALBUTEROL INHALER HFA (VENTOLIN HFA) 18 GM IH SCH ×4 (02:21→20:11)
[2019-12-21] MEDS: dexAMETHasone 6 MG TAB (DECADRON) PO SCH (05:36)
[2019-12-21 06:44] LABS: BASOPHILS % (AUTO) 0 % (0-10); EOSINOPHILS % (AUTO) 0 % (0-10); HEMATOCRIT 39 % (35-52); HEMOGLOBIN 13.2 g/dL (11.5-16.0); LYMPHOCYTES # (AUTO) 1.4 10^3/uL (1.0-4.0); LYMPHOCYTES % (AUTO) 11 % (12-44); MEAN CORPUSCULAR HEMOGLOBIN 34 pg (25-34); MEAN CORPUSCULAR HGB CONC 34 g/dL (32-36); MEAN CORPUSCULAR VOLUME 100 fL (80-99); MONOCYTES # (AUTO) 1.3 10^3/uL (0.0-1.0); MONOCYTES % (AUTO) 10 % (0-12); NEUTROPHILS # (AUTO) 10.2 10^3/uL (1.8-7.8); NEUTROPHILS % (AUTO) 78 % (42-75); PLATELET COUNT 316 10^3/uL (130-400)
[2019-12-21 07:08] LABS: BUN/CREATININE RATIO 49; CARBON DIOXIDE 24 MMOL/L (21-32); CHLORIDE 98 MMOL/L (98-107); CREATININE SERUM 0.86 MG/DL (0.60-1.30); GFR ESTIMATED > 60; GLUCOSE 126 MG/DL (70-105); MAGNESIUM 2.3 MG/DL (1.6-2.4); POTASSIUM 4.3 MMOL/L (3.6-5.0); SODIUM 132 MMOL/L (135-145)
[2019-12-21] MEDS: meTOprolol SUCCINATE 100 MG (TOPROL XL) TAB PO SCH ×2 (09:02→20:23)
[2019-12-21] MEDS: ROSUVASTATIN 5 MG (CRESTOR) TABLET PO SCH (09:02)
[2019-12-21] MEDS: APIXABAN 5 MG (ELIQUIS) TABLET PO SCH ×2 (09:02→20:23)
[2019-12-21] MEDS: polyethylene glycoL POWDER 17 GM (MIRALAX) PACK PO PRN (09:03)
--- NOTE | 2019-12-21 10:35 | Progress Note - Cardiology ---
Cardiology SOAP Progress Note Subjective: No cp or palp or syncope or shortness of breath at rest Gen weakness and malaise No n/v/d Objective: I&O/Vital Signs 12/21/19 12/21/19 12/21/19 12/21/19 00:35 01:00 02:21 04:59 Temp 36.0 36.0 Pulse 79 60 61 Resp 24 24 B/P (MAP) 148/77 (100) 132/70 (90) Pulse Ox 95 96 94 O2 Delivery High Flow N/C High Flow N/C High Flow N/C O2 Flow Rate 4.00 3.00 3.00 12/21/19 12/21/19 07:00 08:00 Temp 36.4 Pulse 57 79 Resp 22 B/P (MAP) 144/82 (102) Pulse Ox 93 O2 Delivery High Flow N/C O2 Flow Rate 3.00 12/21/19 00:00 Intake Total 750 ml Output Total 1100 ml Balance -350 ml Weight (Pounds): 170 Weight (Calculated Kilograms): 77.913662 Constitutional: AAO x 3, well-developed, well-nourished Respiratory: No accessory muscle use; other (good bilateral air entry, diminished at the bases) Cardiovascular: irregularly irregular, S1 and S2, systolic murmur (soft DAVID at card base) Gastrointestional: No tender, No guarding, No rebound; audible bowel sounds Extremities: No clubbing, No cyanosis, No significant edema Neurologic/Psychiatric: other (moves all limbs equally) Results/Procedures: Labs Laboratory Tests 12/21/19 06:30: White Blood Count 13.0H, Red Blood Count 3.88, Hemoglobin 13.2, Hematocrit 39, Mean Corpuscular Volume 100H, Mean Corpuscular Hemoglobin 34, Mean Corpuscular Hemoglobin Concent 34, Red Cell Distribution Width 12.2, Platelet Count 316, Mean Platelet Volume 10.0, Immature Granulocyte % (Auto) 1, Neutrophils (%) (Auto) 78H, Lymphocytes (%) (Auto) 11L, Monocytes (%) (Auto) 10, Eosinophils (%) (Auto) 0, Basophils (%) (Auto) 0, Neutrophils # (Auto) 10.2H, Lymphocytes # (Auto) 1.4, Monocytes # (Auto) 1.3H, Eosinophils # (Auto) 0.0, Basophils # (Auto) 0.0, Immature Granulocyte # (Auto) 0.1, Sodium Level 132L, Potassium Level 4.3, Chloride Level 98, Carbon Dioxide Level 24, Anion Gap 10, Blood Urea Nitrogen 42H, Creatinine 0.86, Estimat Glomerular Filtration Rate > 60, BUN/Creatinine Ratio 49, Glucose Level 126H, Calcium Level 9.0, Phosphorus Level 3.0, Magnesium Level 2.3 Microbiology 12/17/19 Blood Culture - Preliminary, Resulted No growth 12/17/19 MRSA Screen - Final, Complete MRSA not isolated Laboratory Tests 12/20/19 04:09 12/21/19 06:30 A/P: Assessment: Ac resp failure precipitated by COVID-19 pneumonia, improving Paroxysmal atrial fibrillation precipitated by the above diagnosis, currently controlled on BB and CCB for rate control and apixaban for stroke prophylaxis H/o hypertension, controlled H/o hyperlipidemia Plan: * Continue current regimen of CCB, BB, and apixaban * Monitor lytes and renal function MUSA ATKINSON MD FACP [facility] Dec 21, 2019 10:35
--- NOTE | 2019-12-21 10:55 | Progress Note - Hospitalist ---
Subjective HPI/CC On Admission Date Seen by Provider: Dec 21, 2019 Time Seen by Provider: 10:20 Pt is a n 84yoCF with a PMH of a-fib, ICH, HTN, HLD who presented to the ER due to worsening COVID symptoms. She developed COVID symptoms 12 days ago and was tested positive 10 days ago after attending a wedding where there have now been multiple COVID cases. She was doing ok at home but became more short of breath yesterday. She reports a temperature around 100. She told the ER due was more weak and that it was hard to walk but to me states the difficulty walking was from her need for a hip replacement. She was treated with Azithromycin, decadron, and cefdinir as an outpatient and did well with that until yesterday. Subjective/Events-last exam She is feeling good. She has been up in the bathroom. She denies shortness of breath. She denies cough. She denies fever. She has been eating and drinking without issue. She has no other complaints or concerns. Objective Exam Vital Signs Vital Signs Date Time Temp Pulse Resp B/P (MAP) Pulse Ox O2 Delivery O2 Flow Rate FiO2 12/21/19 08:00 93 High Flow N/C 3.00 12/21/19 08:00 36.4 79 22 144/82 (102) 12/20/19 02:37 40 Capillary Refill : Less Than 3 Seconds General Appearance: No Apparent Distress, WD/WN Respiratory: Lungs Clear, Normal Breath Sounds, No Respiratory Distress Cardiovascular: Regular Rate, Rhythm, No Edema, No Murmur Gastrointestinal: Normal Bowel Sounds, Non Tender, Soft Extremity: Normal Inspection, Non Tender, No Pedal Edema Neurologic/Psychiatric: Alert, Oriented x3, No Motor/Sensory Deficits, Normal Mood/Affect Skin: Normal Color, Warm/Dry Results/Procedures Lab Laboratory Tests 12/21/19 06:30 Patient resulted labs reviewed. Imaging: Reviewed Imaging Report Assessment/Plan Assessment and Plan Assess & Plan/Chief Complaint Acute respiratory failure due to COVID-19 Pneumonia due to COVID-19 Decadron Outside window for Remdesivir s/p 2 units convalescent plasma Supplemental oxygen as needed, improving Hx of dementia Generalized weakness PT/OT Plan for HH on discharge Atrial fibrillation Diltiazem Eliquis HTN Monitor DVT Prophylaxis: already receiving therapeutic anticoagulation AFib with RVR, resolved Diagnosis/Problems Diagnosis/Problems (1) Acute respiratory failure due to COVID-19 Status: Acute (2) Pneumonia due to COVID-19 virus Status: Acute Clinical Quality Measures DVT/VTE Risk/Contraindication: Risk Factor Score Per Nursin RFS Level Per Nursing on Admit: 4+=Very High GURVINDER ZELAYA MD Dec 21, 2019 10:54
--- NOTE | 2019-12-21 11:17 | Physical Therapy Daily Note ---
PT Daily Note-Current Subjective Patient agrees to PT. She states she hopes to go home today or tomorrow. Mental Status Patient Orientation: Normal For Age Attachments: Oxygen Transfers SCALE: Activities may be completed with or without assistive devices. 0-Mmibzvvhhv-ovuauux completes the activity by him/herself with no assistance from a helper. 5-Set-up or Clean-up Assistance-helper sets up or cleans up; patient completes activity. [place] assists only prior to or following the activity. 4-Supervision or Touching Assistance-helper provides verbal cues and/or touching/steadying and/or contact guard assistance as patient completes activity. Assistance may be provided throughout the activity or intermittently. 3-Partial/Moderate Assistance-helper does LESS THAN HALF the effort. [place] lifts, holds or supports trunk or limbs, but provides less than half the effort. 2-Substantial/Maximal Assistance-helper does MORE THAN HALF the effort. [place] lifts or holds trunk or limbs and provides more than half the effort. 3-Xwygoxlvk-eyzjae does ALL the effort. Patient does none of the effort to complete the activity. Or, the assistance of 2 or more helpers is required for the patient to complete the activity. If activity was not attempted, code reason: 7-Patient Refused. 9-Not Applicable-not attempted and the patient did not perform the activity before the current illness, exacerbation or injury. 10-Not Attempted due to Environmental Limitations-(lack of equipment, weather restraints, etc.). 88-Not Attempted due to Medical Conditions or Safety Concerns. Roll Left & Right (QC): 6 Sit to Lying (QC): 6 Lying to Sitting/Side of Bed(Q: 6 Sit to Stand (QC): 6 Gait Training Does the Patient Walk?: Yes Distance: 150' Walk 10 feet (QC): 6 Walk 50 ft with 2 Turns(QC): 6 Walk 150 ft (QC): 6 Gait Assistive Device: FWW ambulation in room due to precautions/no deviation/safe and functional gait sequence Assessment Current Status: Excellent Progress PT Half-Way Goals Pressroom Foreman Goals PT Pressroom Foreman Goals Time Frame: Jan 06, 2020 Roll Left & Right (QC): 6 Sit to Lying (QC): 6 Lying-Sitting on Side/Bed(QC): 6 Sit to Stand (QC): 6 Chair/Nsg-wt-Hofcr Xfer(QC): 6 Toilet Transfer (QC): 6 Walk 10 feet (QC): 6 Walk 50ft with 2 Turns (QC): 6 Walk 150 ft (QC): 6 PT Plan Treatment/Plan Treatment Plan: Continue Plan of Care Treatment Plan: Education, Functional Activity [place], Functional Strength, Gait, Safety, Therapeutic Exercise, Transfers Treatment Duration: Jan 06, 2020 Frequency: 6 times per week Estimated Hrs Per Day: .25 hour per day Patient and/or Family Agrees t: Yes Time/GCodes Time In: 1037 Time Out: 1050 Total Billed Treatment Time: 13 Total Billed Treatment 1 visit GT 13 min JAMEEL LOPEZ PT Dec 21, 2019 11:17
--- NOTE | 2019-12-21 13:10 | NUR ---
Report from Celestina RUIZ, will assume care of patient at this time.
--- NOTE | 2019-12-21 15:00 | NUR ---
1500 MDI SCHEDULED TX WAS NON ADMINISTERED DUE TO AN EMERGENT PATIENT IN THE ICU
[2019-12-22] MEDS: RT-ALBUTEROL INHALER HFA (VENTOLIN HFA) 18 GM IH SCH ×2 (02:50→15:27)
[2019-12-22 03:29] VITALS: BP 138/83
[2019-12-22] MEDS: dexAMETHasone 6 MG TAB (DECADRON) PO SCH (05:54)
[2019-12-22 06:37] LABS: BASOPHILS # (AUTO) 0.1 10^3/uL (0.0-0.1); BASOPHILS % (AUTO) 0 % (0-10); EOSINOPHILS % (AUTO) 0 % (0-10); HEMATOCRIT 41 % (35-52); HEMOGLOBIN 14.1 g/dL (11.5-16.0); LYMPHOCYTES # (AUTO) 1.4 10^3/uL (1.0-4.0); LYMPHOCYTES % (AUTO) 11 % (12-44); MEAN CORPUSCULAR HEMOGLOBIN 35 pg (25-34); MEAN CORPUSCULAR HGB CONC 34 g/dL (32-36); MEAN CORPUSCULAR VOLUME 101 fL (80-99); MONOCYTES # (AUTO) 1.4 10^3/uL (0.0-1.0); MONOCYTES % (AUTO) 11 % (0-12); NEUTROPHILS # (AUTO) 9.6 10^3/uL (1.8-7.8); NEUTROPHILS % (AUTO) 76 % (42-75); PLATELET COUNT 358 10^3/uL (130-400); WHITE BLOOD COUNT 12.6 10^3/uL (4.3-11.0)
[2019-12-22 06:56] LABS: BUN/CREATININE RATIO 45; CALCIUM 9.3 MG/DL (8.5-10.1); CARBON DIOXIDE 20 MMOL/L (21-32); CHLORIDE 101 MMOL/L (98-107); GFR ESTIMATED > 60; GLUCOSE 122 MG/DL (70-105); MAGNESIUM 2.3 MG/DL (1.6-2.4); PHOSPHORUS 3.1 MG/DL (2.3-4.7); POTASSIUM 4.9 MMOL/L (3.6-5.0); SODIUM 134 MMOL/L (135-145)
[2019-12-22] MEDS: ROSUVASTATIN 5 MG (CRESTOR) TABLET PO SCH (08:10)
[2019-12-22] MEDS: polyethylene glycoL POWDER 17 GM (MIRALAX) PACK PO PRN (08:10)
[2019-12-22] MEDS: APIXABAN 5 MG (ELIQUIS) TABLET PO SCH (08:10)
[2019-12-22] MEDS: meTOprolol SUCCINATE 100 MG (TOPROL XL) TAB PO SCH (08:10)
[2019-12-22 08:21] VITALS: BP 154/75
[2019-12-22] MEDS ORDERED: DILT240C91 PO (09:47)
--- NOTE | 2019-12-22 09:58 | Discharge Summary ---
Discharge Summary Reconcile Patient Problems Problems Reviewed?: Yes Instructions for Patient Via [facility], Assessment/Instructions Take medications as prescribed. Follow up with your primary care physician. Return with worsening shortness of breath or if you feel like you're getting worse. Physician to follow Patient: Juaquin Discharge Diet for Home: No Restrictions Hospital Course Date of Admission: Dec 15, 2019 at 22:10 Admission Diagnosis : Acute respiratory failure due to COVID-19 Family Physician/Provider: No,Local Physician Date of Discharge: 12/22/19 Discharge Diagnosis: Acute respiratory failure due to COVID-19 Hospital Course: Lalita Christensen is an 84-year-old female who was admitted with acute respiratory failure due to COVID-19. She was treated with IV Decadron. She was outside of the window for treatment with Remdesivir. She received a 1 unit transfusion of convalescent plasma. She had been requiring supplemental oxygen, but her requirements improved prior to discharge. At the time of discharge she was requiring 2 L with exertion per an RT performed home oxygen study. Her course was complicated by atrial fibrillation with rapid ventricular response for which she was started on diltiazem. She had a history of A. fib and was already on metoprolol and Eliquis which were continued. Her course was also complicated by debility and PT and OT were assisting with her recovery. She was set up with home health care on discharge for ongoing therapies. She showed fol low-up with her primary care physician in one to two weeks. She was discharged home in stable condition. Labs and Pending Lab Test: Laboratory Tests 12/21/19 13:16: Lab Scanned Report Transfusion Reaction Form 12/22/19 06:24: White Blood Count 12.6H, Red Blood Count 4.08, Hemoglobin 14.1, Hematocrit 41, Mean Corpuscular Volume 101H, Mean Corpuscular Hemoglobin 35H, Mean Corpuscular Hemoglobin Concent 34, Red Cell Distribution Width 12.0, Platelet Count 358, Mean Platelet Volume 11.0, Immature Granulocyte % (Auto) 1, Neutrophils (%) (Auto) 76H, Lymphocytes (%) (Auto) 11L, Monocytes (%) (Auto) 11, Eosinophils (%) (Auto) 0, Basophils (%) (Auto) 0, Neutrophils # (Auto) 9.6H, Lymphocytes # (Auto) 1.4, Monocytes # (Auto) 1.4H, Eosinophils # (Auto) 0.0, Basophils # (Auto) 0.1, Immature Granulocyte # (Auto) 0.1, Sodium Level 134L, Potassium Level 4.9, Chloride Level 101, Carbon Dioxide Level 20L, Anion Gap 13, Blood Urea Nitrogen 36H, Creatinine 0.80, Estimat Glomerular Filtration Rate > 60, BUN/Creatinine Ratio 45, Glucose Level 122H, Calcium Level 9.3, Phosphorus Level 3.1, Magnesium Level 2.3 Microbiology 12/17/19 Blood Culture - Preliminary, Resulted No growth 12/17/19 MRSA Screen - Final, Complete MRSA not isolated Home Meds Active Diltiazem 24Hr ER (Diltiazem HCl) 240 Mg Cap.er.24h 240 Mg PO DAILY 30 Days Reported Cefdinir 300 Mg Capsule 300 Mg PO BID 7 Days Rx on 12/12/19 Rosuvastatin Calcium 5 Mg Tablet 5 Mg PO DAILY Losartan Potassium 50 Mg Tablet 50 Mg PO DAILY Eliquis (Apixaban) 5 Mg Tablet 5 Mg PO BID Toprol Xl (Metoprolol Succinate) 100 Mg Tab.er.24h 100 Mg PO BID BRAND NAME ONLY Patient Allergies: Coded Allergies: lisinopril (Verified Adverse Reaction, Unknown, COUGH, 03/01/15) Height (Feet): 5 Height (Inches): 1 Weight (Pounds): 170 Home Health Need/Face to Face Date of Face to Face: Dec 22, 2019 Clinical Findings: Generalized weakness and fatigue, Muscle weakness I have seen Pt [id number]: Yes Discharged To: Home Diagnosis/Conditions: COVID-19 Debility Problems/Diagnosis/Condition: (1) Debility (2) Acute respiratory failure due to COVID-19 Patient is Homebound due to: Lola fall risk due to instabilty, Muscle weakness Homebound Status Due to the above stated illness, injury or surgical procedure (medical condition or diagnosis) and associated clinical findings, the patient is homebound because of his/her inability to leave home except with aid of a supportive device and/or person AND leaving the home requires a considerable and taxing effort or is medically contraindicated. Pt req the following assistanc: Aid of another person Home Health Nursing Orders Home Health Services Order: Nursing Services, Gluing Machine Operator Electronic-Evaluate & Treat, Physical Therapy-Evaluate & Treat Home Health Infusion Therapy Line Start Date: Dec 15, 2019 Therapy Orders Therapy Orders: OT (must have SN or PT order), Physical Therapy Therapy Specific Orders: Eval assistive deivces, Teach enviro modifications/safety, Gait training, Increase strength/endurance Certify Stmt I certify that this patient is under my care and that I, a nurse practitioner or a physician; a rn first assistant working with me, had a face to face encounter that - meets the physician face to face encounter requirements with this patient as dated. Discharge Physical Exam General: Alert, Oriented X3, Cooperative, No Acute Distress HEENT: EOMI, Mucous Memb Moist/[place] Lungs: Clear to Auscultation, Normal Air Movement Heart: Regular Rate, Normal S1, Normal S2, No Murmurs Abdomen: Normal Bowel Sounds, Soft, No Tenderness Extremities: No Edema, No Tenderness/Swelling Skin: No Rashes, No Significant Lesion Neuro: Normal Speech, Other (motor weakness) Psych/Mental Status: Mental Status NL, Mood NL GURVINDER ZELAYA MD Dec 22, 2019 09:52
--- NOTE | 2019-12-22 10:08 | NUR ---
CM/SS: Pt has requested home care services with [facility] at the time of discharge Plan: When deemed appropriate, pt will be discharged to home with home care services from [facility] of [place] Summary: Pt has had [facility] previously and request to have them at time of discharge. [facility] contacted they have taken care of pt, however current case is closed. Information faxed to [facility] [phone]. Confirmation received.
[2019-12-22 13:59] VITALS: BP 138/83
--- NOTE | 2019-12-22 14:04 | NUR ---
PATIENT WAS ON RA FOR MORE THAN 60 MINS AND WAS STILL AT 91% ON RA; PATIENT WALKED AND DESATTED TO 85%, O2 WAS ADDED AT 2 L NC AND O2 SAT CAME UP AND STAYED UP ABOVE 88% FOR THE REMAINDER OF THE WALK. PATIENT DID NOT REQUIRE O2 AT REST BUT REQUIRED 2 L NC ON EXERTION
--- NOTE | 2019-12-22 14:09 | NUR ---
CM/SS: Oxygen Information is faxed to [facility] - phone - [phone] fax [phone] who are able to services the [place], [place] area. They are able to deliver to the hospital for pt prior to discharge. Finalized discharge summary and orders sent to [facility] - [facility] - Faxed [phone].
[2019-12-22 17:03] VITALS: BP 138/83
== END 2019-12-22 17:11 | disposition home health service (06) | DRG 871 ==
LOC: EDUNIT# 20:30 → ER 20:32 → 4TH 22:10 → ICU 12-17 04:08 → 4TH 12-19 09:17
PROVIDERS: ADMIT Family Medicine; ATTEND Internal Medicine
PROC: XW13325 Transfusion of Convalescent Plasma (Nonautologous) into Peripheral Vein, Percutaneous Approach, New Technology Group 5 (ICD-10-PCS; principal; 2019-12-15)
DX: A41.89 Other specified sepsis (principal); U07.1 COVID-19; J12.89 Other viral pneumonia; J96.00 Acute respiratory failure, unspecified whether with hypoxia or hypercapnia; E87.1 Hypo-osmolality and hyponatremia; I10 Essential (primary) hypertension; E78.5 Hyperlipidemia, unspecified; F03.90 Unspecified dementia, unspecified severity, without behavioral disturbance, psychotic disturbance, mood disturbance, and anxiety; I48.0 Paroxysmal atrial fibrillation; E86.0 Dehydration
CPT/HCPCS: 36415; 51702; 71045; 80048; 80053; 81000; 82550; 82553; 82728; 82805; 83605; 83735; 83874; 83880; 84100; 84145; 84484; 85007; 85025; 85027; 85379; 85610; 85730; 86900; 86901; 87040; 87081; 90662; 93005; 93041; 94640; 94660; 94664; 94760; 94761; 96374; 96375